=== PATIENT | female | born 1990 | race American Indian/Alaskan Native ===

== ENCOUNTER 2019-01-06 20:33 | Inpatient (IN) | payer OTHER ==
[2019-01-06] MEDS ORDERED: BRETHINE SUB-Q PRN (23:23)
[2019-01-06] MEDS ORDERED: XYLOCAINE 2% INFILTRATI ONE (23:23)
[2019-01-06] MEDS ORDERED: BRETHINE IVP PRN (23:23)
[2019-01-06] MEDS ORDERED: SUBLIMAZE IV PRN (23:23)
[2019-01-06] MEDS ORDERED: STADOL IV PRN (23:23)
[2019-01-06] MEDS ORDERED: MINERAL OIL PO PRN (23:23)
[2019-01-06] MEDS ORDERED: AMBIEN PO PRN (23:27)
[2019-01-06] MEDS ORDERED: PITOCin/NS 20 UNIT/1000ML DRIP 20 UNITS/1,000 ML BAG IV SCH (23:45)
[2019-01-06] MEDS ORDERED: CERVIDIL VG ONE (23:51)
[2019-01-07 00:18] LABS: Hematocrit 32.4 % (30.3-42.9); Hemoglobin 11.2 gm/dl (10.1-14.3); Mean Corpuscular HGB Conc 35 % (30-34); Mean Corpuscular Volume 96 fl (79-97); Platelet Count 315 K/mm3 (140-440); Red Blood Count 3.39 M/mm3 (3.65-5.03); Red Cell Distribution Width 13.6 % (13.2-15.2)
[2019-01-07] MEDS: LACTATED RINGERS 1,000 ML IV SCH ×2 (00:34→19:55)
--- NOTE | 2019-01-07 01:44 | History and Physical Report ---
History of Present Illness Date of examination: 01/07/19 Date of admission: 01/06/19 20:33 Chief complaint: Induction of Labor History of present illness: 28yo G 1 P 0 @ 39 weeks 3 days here for a scheduled induction of labor secondary to morbid obesity, per [facility] recommendation. She reports +FMs but denies UCs, VB or LOF. She is a [employer] patient who initiated care at 32 weeks gestation; late transfer from [facility]. Her care was co-managed with [facility]. 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 Labs: O+, antibody screen neg, pap smear normal, RI, VDRL NR, HBsAg neg, HIV neg, HSV-2 pos, GC/CT/Trich neg, sickle cell screen neg, Drug screen neg, MSAFP neg, Diabetes screen 89, GBS neg. Past History Past Medical History: other (keloid scars) Past Surgical History: other (keloid removal) [employer] History: gonorrhea, herpes Family/Genetic History: diabetes, hypertension, cancer (lung), other (Autism) Social history: single, lives with family, full code. denies: smoking, alcohol abuse, prescription drug abuse, IV drug use - Obstetrical History Expected Date of Delivery: 01/11/19 Actual Gestation: 39 Week(s) 3 Day(s) : 1 Para: 0 Hx # Term Pregnancies: 0 Number of Pregnancies: 0 Spontaneous Abortions: 0 Induced : 0 Number of Living Children: 0 Medications and Allergies Allergies Allergy/AdvReac Type Severity Reaction Status Date / Time No Known Allergies Allergy Verified 01/06/19 23:09 Active Meds: Active Medications Butorphanol Tartrate (Stadol) 2 mg IV Q2H PRN PRN Reason: Pain , Severe (7-10) Ephedrine Sulfate (Ephedrine Sulfate) 10 mg IV Q2M PRN PRN Reason: Hypotension Fentanyl (Sublimaze) 100 mcg IV Q2H PRN PRN Reason: Labor Pain Lactated Ringer's (Lactated Ringers) 1,000 mls @ 125 mls/hr IV DIRECT EDWARD Last Admin: 01/07/19 00:34 Dose: 125 mls/hr Documented by: Oxytocin/Sodium Chloride (Pitocin/Ns 20 Unit/1000ml Drip) 20 units in 1,000 mls @ 125 mls/hr IV DIRECT EDWARD Mineral Oil (Mineral Oil) 30 ml PO QHS PRN PRN Reason: Constipation Terbutaline Sulfate (Brethine) 0.25 mg SUB-Q ONCE PRN PRN Reason: Hyperstimulation/Hypertonicity Terbutaline Sulfate (Brethine) 0.25 mg IVP ONCE PRN PRN Reason: Hyperstimulation/Hypertonicity Zolpidem Tartrate (Ambien) 10 mg PO QHS PRN PRN Reason: Insomnia Review of Systems All systems: negative - Vital Signs Vital signs: Vital Signs Pulse Pulse Ox 95 H 96 01/06/19 20:58 01/06/19 20:58 Temp Pulse Resp BP Pulse Ox 98.8 F 80 18 108/55 96 01/06/19 22:00 01/07/19 01:29 01/06/19 22:00 01/06/19 22:16 01/07/19 01:29 - Obstetrical FHR: auscultation normal, category 1 FHR comments: baseline 130, moderate variability, 15x15 accels, no decels Cervical Dilatation: 0 (per RN) Cervical Effacement Percentage: 20 (per RN) station: -3 (per RN) Uterine Contraction Pattern: Irregular Results Result Diagrams: 01/06/19 21:00 Abnormal lab results 01/06/19 Range/Units 21:00 RBC 3.39 L (3.65-5.03) M/mm3 MCH 33 H (28-32) pg MCHC 35 H (30-34) % All other labs normal. Assessment and Plan - Patient Problems (1) 39 weeks gestation of Current Visit: Yes Status: Acute (2) Encounter for induction of labor Current Visit: Yes Status: Acute Plan to address problem: Admit to L&D with routine labor orders Discussed plan of care with patient Cervidil for cervical ripening ordered Anticipate vaginal delivery (3) Morbid obesity with BMI of 40.0-44.9, adult Current Visit: Yes Status: Chronic (4) Keloid scar Current Visit: Yes Status: Chronic
[2019-01-07] MEDS ORDERED: XYLOCAINE 2% INFILTRATI ONE (09:05)
--- NOTE | 2019-01-07 09:35 | Progress Note ---
Assessment and Plan - Patient Problems (1) Encounter for induction of labor Current Visit: Yes Status: Acute Plan to address problem: Continue routine labor orders Remove cervidil 12 hrs from insertion Pain meds as needed Will reassess after cervidil removed Anticipate (2) Morbid obesity with BMI of 40.0-44.9, adult Current Visit: Yes Status: Chronic (3) Keloid scar Current Visit: Yes Status: Chronic Subjective - Subjective Date of service: 01/07/19 (08) Principal diagnosis: Induction of labor secondary to morbid obesity Interval history: See admission H & P Patient reports: new complaints (Reports some back pain. Wants to know if she can eat after cervidil comes out.), movement normal, contractions, no loss of fluid, no vaginal bleeding Objective - Vital Signs Vital Signs: Vital Signs - 12hr 01/06/19 01/06/19 01/06/19 21:32 21:33 22:00 Temperature 98.8 F Pulse Rate 90 94 H Respiratory 18 Rate Blood Pressure O2 Sat by Pulse 94 95 Oximetry 01/06/19 01/06/19 01/06/19 22:16 22:21 22:26 Temperature Pulse Rate 90 90 84 Respiratory Rate Blood Pressure 108/55 O2 Sat by Pulse 98 96 97 Oximetry 01/06/19 01/06/19 01/06/19 22:31 22:36 22:41 Temperature Pulse Rate 84 87 89 Respiratory Rate Blood Pressure O2 Sat by Pulse 97 97 97 Oximetry 01/06/19 01/06/19 01/06/19 22:46 22:51 22:56 Temperature Pulse Rate 94 H 85 79 Respiratory Rate Blood Pressure O2 Sat by Pulse 96 96 97 Oximetry 01/06/19 01/06/19 01/06/19 23:01 23:06 23:11 Temperature Pulse Rate 84 84 96 H Respiratory Rate Blood Pressure O2 Sat by Pulse 96 97 96 Oximetry 01/06/19 01/06/19 01/06/19 23:16 23:21 23:26 Temperature Pulse Rate 79 76 95 H Respiratory Rate Blood Pressure O2 Sat by Pulse 97 97 97 Oximetry 01/06/19 01/06/19 01/06/19 23:31 23:36 23:41 Temperature Pulse Rate 79 78 80 Respiratory Rate Blood Pressure O2 Sat by Pulse 98 97 96 Oximetry 01/06/19 01/06/19 01/06/19 23:46 23:51 23:56 Temperature Pulse Rate 77 94 H 84 Respiratory Rate Blood Pressure O2 Sat by Pulse 96 97 96 Oximetry 01/06/19 01/07/19 01/07/19 23:58 00:01 00:06 Temperature Pulse Rate 89 80 78 Respiratory Rate Blood Pressure O2 Sat by Pulse 94 96 95 Oximetry 01/07/19 01/07/19 01/07/19 00:07 00:10 00:14 Temperature 98.8 F Pulse Rate 81 94 H Respiratory 18 Rate Blood Pressure O2 Sat by Pulse 94 98 Oximetry 01/07/19 01/07/19 01/07/19 00:19 00:24 00:29 Temperature Pulse Rate 79 79 103 H Respiratory Rate Blood Pressure O2 Sat by Pulse 94 97 96 Oximetry 01/07/19 01/07/19 01/07/19 00:30 00:34 00:36 Temperature Pulse Rate 87 81 84 Respiratory Rate Blood Pressure O2 Sat by Pulse 94 95 94 Oximetry 01/07/19 01/07/19 01/07/19 00:39 00:44 00:49 Temperature Pulse Rate 86 88 82 Respiratory Rate Blood Pressure O2 Sat by Pulse 94 96 95 Oximetry 01/07/19 01/07/19 01/07/19 00:54 00:59 01:04 Temperature Pulse Rate 93 H 85 82 Respiratory Rate Blood Pressure O2 Sat by Pulse 97 96 95 Oximetry 01/07/19 01/07/19 01/07/19 01:07 01:09 01:13 Temperature Pulse Rate 78 91 H 86 Respiratory Rate Blood Pressure O2 Sat by Pulse 93 97 94 Oximetry 01/07/19 01/07/19 01/07/19 01:14 01:19 01:24 Temperature Pulse Rate 84 75 87 Respiratory Rate Blood Pressure O2 Sat by Pulse 97 94 96 Oximetry 01/07/19 01/07/19 01/07/19 01:29 01:33 01:34 Temperature Pulse Rate 80 81 Respiratory Rate Blood Pressure O2 Sat by Pulse 96 94 97 Oximetry 01/07/19 01/07/19 01/07/19 01:39 01:44 01:50 Temperature Pulse Rate 84 82 101 H Respiratory Rate Blood Pressure O2 Sat by Pulse 93 98 93 Oximetry 01/07/19 01/07/19 01/07/19 01:55 02:00 02:05 Temperature Pulse Rate 73 73 79 Respiratory Rate Blood Pressure O2 Sat by Pulse 95 96 95 Oximetry 01/07/19 01/07/19 01/07/19 02:06 02:10 02:11 Temperature Pulse Rate 77 80 78 Respiratory Rate Blood Pressure O2 Sat by Pulse 94 95 94 Oximetry 01/07/19 01/07/19 01/07/19 02:15 02:19 02:20 Temperature Pulse Rate 80 71 78 Respiratory Rate Blood Pressure O2 Sat by Pulse 94 94 96 Oximetry 01/07/19 01/07/19 01/07/19 02:25 02:30 02:35 Temperature Pulse Rate 69 74 78 Respiratory Rate Blood Pressure O2 Sat by Pulse 97 96 93 Oximetry 01/07/19 01/07/19 01/07/19 02:40 02:45 02:46 Temperature Pulse Rate 77 77 75 Respiratory Rate Blood Pressure O2 Sat by Pulse 94 94 93 Oximetry 01/07/19 01/07/19 01/07/19 02:50 02:51 02:55 Temperature Pulse Rate 72 25 L 83 Respiratory Rate Blood Pressure O2 Sat by Pulse 93 93 96 Oximetry 01/07/19 01/07/19 01/07/19 02:56 03:00 03:02 Temperature Pulse Rate 70 87 90 Respiratory Rate Blood Pressure O2 Sat by Pulse 94 93 93 Oximetry 01/07/19 01/07/19 01/07/19 03:05 03:09 03:10 Temperature Pulse Rate 72 66 83 Respiratory Rate Blood Pressure O2 Sat by Pulse 93 94 95 Oximetry 01/07/19 01/07/19 01/07/19 03:14 03:15 03:20 Temperature Pulse Rate 74 70 68 Respiratory Rate Blood Pressure O2 Sat by Pulse 94 94 97 Oximetry 01/07/19 01/07/19 01/07/19 03:21 03:25 03:28 Temperature Pulse Rate 94 H 77 78 Respiratory Rate Blood Pressure O2 Sat by Pulse 93 93 93 Oximetry 01/07/19 01/07/19 01/07/19 03:30 03:34 03:35 Temperature Pulse Rate 75 82 83 Respiratory Rate Blood Pressure O2 Sat by Pulse 96 91 97 Oximetry 01/07/19 01/07/19 01/07/19 03:40 03:45 03:48 Temperature Pulse Rate 81 84 73 Respiratory Rate Blood Pressure O2 Sat by Pulse 91 93 94 Oximetry 01/07/19 01/07/19 01/07/19 03:50 03:55 03:56 Temperature 97.6 F Pulse Rate 82 76 Respiratory 20 Rate Blood Pressure O2 Sat by Pulse 94 94 Oximetry 01/07/19 01/07/19 01/07/19 04:00 04:08 04:13 Temperature Pulse Rate 85 92 H 77 Respiratory Rate Blood Pressure O2 Sat by Pulse 97 99 97 Oximetry 01/07/19 01/07/19 01/07/19 04:18 04:23 04:28 Temperature Pulse Rate 83 73 77 Respiratory Rate Blood Pressure O2 Sat by Pulse 97 96 96 Oximetry 01/07/19 01/07/19 01/07/19 04:33 04:34 04:38 Temperature Pulse Rate 72 74 75 Respiratory Rate Blood Pressure O2 Sat by Pulse 95 93 96 Oximetry 01/07/19 01/07/19 01/07/19 04:43 04:44 04:48 Temperature Pulse Rate 80 76 83 Respiratory Rate Blood Pressure O2 Sat by Pulse 95 94 96 Oximetry 01/07/19 01/07/19 01/07/19 04:51 04:53 04:58 Temperature Pulse Rate 81 78 84 Respiratory Rate Blood Pressure O2 Sat by Pulse 93 95 95 Oximetry 01/07/19 01/07/19 01/07/19 04:59 05:03 05:04 Temperature Pulse Rate 78 81 80 Respiratory Rate Blood Pressure O2 Sat by Pulse 94 95 94 Oximetry 01/07/19 01/07/19 01/07/19 05:08 05:12 05:13 Temperature Pulse Rate 89 84 83 Respiratory Rate Blood Pressure O2 Sat by Pulse 95 93 93 Oximetry 01/07/19 01/07/19 01/07/19 05:18 05:23 05:24 Temperature Pulse Rate 76 68 70 Respiratory Rate Blood Pressure O2 Sat by Pulse 89 96 94 Oximetry 01/07/19 01/07/19 01/07/19 05:28 05:29 05:33 Temperature Pulse Rate 77 78 79 Respiratory Rate Blood Pressure O2 Sat by Pulse 93 94 95 Oximetry 01/07/19 01/07/19 01/07/19 05:38 05:43 05:47 Temperature Pulse Rate 78 75 79 Respiratory Rate Blood Pressure O2 Sat by Pulse 90 94 94 Oximetry 01/07/19 01/07/19 01/07/19 05:48 05:53 05:58 Temperature Pulse Rate 87 80 75 Respiratory Rate Blood Pressure O2 Sat by Pulse 94 92 94 Oximetry 05/07/19 05/07/19 05/07/19 05:59 06:03 06:05 Temperature Pulse Rate 75 75 75 Respiratory Rate Blood Pressure O2 Sat by Pulse 92 95 93 Oximetry 01/07/19 01/07/19 01/07/19 06:08 06:11 06:13 Temperature Pulse Rate 67 72 71 Respiratory Rate Blood Pressure O2 Sat by Pulse 94 93 95 Oximetry 01/07/19 01/07/19 01/07/19 06:16 06:18 06:23 Temperature Pulse Rate 72 102 H 86 Respiratory Rate Blood Pressure O2 Sat by Pulse 93 99 90 Oximetry 01/07/19 01/07/19 01/07/19 06:28 06:29 06:30 Temperature 97.8 F Pulse Rate 72 69 Respiratory 20 Rate Blood Pressure O2 Sat by Pulse 95 94 Oximetry 01/07/19 01/07/19 01/07/19 06:33 06:35 06:38 Temperature Pulse Rate 70 81 80 Respiratory Rate Blood Pressure O2 Sat by Pulse 96 89 94 Oximetry 01/07/19 01/07/19 01/07/19 06:40 06:43 06:46 Temperature Pulse Rate 74 73 74 Respiratory Rate Blood Pressure O2 Sat by Pulse 93 91 92 Oximetry 01/07/19 01/07/19 01/07/19 06:48 06:51 06:53 Temperature Pulse Rate 76 74 77 Respiratory Rate Blood Pressure O2 Sat by Pulse 95 94 96 Oximetry 01/07/19 01/07/19 01/07/19 06:56 06:58 07:02 Temperature Pulse Rate 70 63 66 Respiratory Rate Blood Pressure O2 Sat by Pulse 93 96 93 Oximetry 01/07/19 01/07/19 01/07/19 07:03 07:07 07:08 Temperature Pulse Rate 65 72 72 Respiratory Rate Blood Pressure O2 Sat by Pulse 95 94 96 Oximetry 01/07/19 01/07/19 01/07/19 07:13 07:14 07:18 Temperature Pulse Rate 78 76 70 Respiratory Rate Blood Pressure O2 Sat by Pulse 94 93 95 Oximetry 01/07/19 01/07/19 01/07/19 07:19 07:23 07:25 Temperature Pulse Rate 95 H 75 75 Respiratory Rate Blood Pressure 99/47 105/57 O2 Sat by Pulse 94 98 94 Oximetry 01/07/19 01/07/19 01/07/19 07:28 07:33 07:38 Temperature Pulse Rate 86 76 73 Respiratory Rate Blood Pressure O2 Sat by Pulse 97 97 95 Oximetry 01/07/19 01/07/19 01/07/19 07:43 07:48 07:53 Temperature Pulse Rate 80 76 76 Respiratory Rate Blood Pressure O2 Sat by Pulse 94 96 97 Oximetry 01/07/19 01/07/19 01/07/19 08:03 08:08 08:12 Temperature Pulse Rate 65 95 H 87 Respiratory Rate Blood Pressure O2 Sat by Pulse 77 L 95 93 Oximetry 01/07/19 01/07/19 01/07/19 08:13 08:18 08:23 Temperature Pulse Rate 78 72 94 H Respiratory Rate Blood Pressure O2 Sat by Pulse 95 95 96 Oximetry 01/07/19 01/07/19 01/07/19 08:24 08:28 08:29 Temperature Pulse Rate 69 73 76 Respiratory Rate Blood Pressure 114/54 O2 Sat by Pulse 93 93 94 Oximetry 01/07/19 01/07/19 01/07/19 08:33 08:35 08:38 Temperature Pulse Rate 72 81 86 Respiratory Rate Blood Pressure O2 Sat by Pulse 94 94 97 Oximetry 01/07/19 01/07/19 01/07/19 08:41 08:43 08:47 Temperature Pulse Rate 77 70 75 Respiratory Rate Blood Pressure O2 Sat by Pulse 94 95 93 Oximetry 01/07/19 01/07/19 01/07/19 08:48 08:53 08:56 Temperature Pulse Rate 68 80 91 H Respiratory Rate Blood Pressure O2 Sat by Pulse 96 97 92 Oximetry 01/07/19 01/07/19 01/07/19 08:58 09:02 09:03 Temperature Pulse Rate 90 86 78 Respiratory Rate Blood Pressure O2 Sat by Pulse 96 90 93 Oximetry 01/07/19 01/07/19 01/07/19 09:08 09:12 09:13 Temperature Pulse Rate 92 H 81 87 Respiratory Rate Blood Pressure 109/56 O2 Sat by Pulse 97 97 Oximetry 01/07/19 01/07/19 01/07/19 09:18 09:23 09:24 Temperature Pulse Rate 76 78 77 Respiratory Rate Blood Pressure 115/59 O2 Sat by Pulse 97 96 Oximetry 01/07/19 09:28 Temperature Pulse Rate 84 Respiratory Rate Blood Pressure O2 Sat by Pulse 98 Oximetry - Exam Breasts: deferred Cardiovascular: Regular rate Lungs: Normal air movement Abdomen: Present: other (gravid) Uterus: Present: other (S=D) FHR: category 1 Uterine Contraction Monitor Mode: External Uterine Contraction Pattern: Irregular Uterine Tone Measurement Phase: Resting Uterine Contraction Intensity: Mild Extremities: normal Deep Tendon Reflex Grade: Normal +2 - Labs Labs: Abnormal Labs 01/06/19 21:00 RBC 3.39 L MCH 33 H MCHC 35 H Laboratory Results - last 24 hr 01/06/19 01/06/19 21:00 21:00 WBC 9.0 RBC 3.39 L Hgb 11.2 Hct 32.4 MCV 96 MCH 33 H MCHC 35 H RDW 13.6 Plt Count 315 Blood Type O POSITIVE Antibody Screen Negative
--- NOTE | 2019-01-07 15:32 | Progress Note ---
Assessment and Plan - Patient Problems (1) Encounter for induction of labor Current Visit: Yes Status: Acute Plan to address problem: Continue routine labor orders Start Pitocin titration as tolerated Pain meds as needed Epidural as desired after good ctx pattern is maintained Anticipate (2) Morbid obesity with BMI of 40.0-44.9, adult Current Visit: Yes Status: Chronic (3) Keloid scar Current Visit: Yes Status: Chronic Subjective - Subjective Date of service: 01/07/19 (1500) Principal diagnosis: Induction of labor secondary to morbid obesity Interval history: See admission H & P Patient reports: new complaints (Reports some back pain. Wants to know if she can eat after cervidil comes out.), movement normal, contractions, no loss of fluid, no vaginal bleeding Objective - Vital Signs Vital Signs: Vital Signs - 12hr 01/07/19 01/07/19 01/07/19 03:25 03:28 03:30 Temperature Pulse Rate 77 78 75 Respiratory Rate Blood Pressure O2 Sat by Pulse 93 93 96 Oximetry 01/07/19 01/07/19 01/07/19 03:34 03:35 03:40 Temperature Pulse Rate 82 83 81 Respiratory Rate Blood Pressure O2 Sat by Pulse 91 97 91 Oximetry 01/07/19 01/07/19 01/07/19 03:45 03:48 03:50 Temperature Pulse Rate 84 73 82 Respiratory Rate Blood Pressure O2 Sat by Pulse 93 94 94 Oximetry 01/07/19 01/07/19 01/07/19 03:55 03:56 04:00 Temperature 97.6 F Pulse Rate 76 85 Respiratory 20 Rate Blood Pressure O2 Sat by Pulse 94 97 Oximetry 01/07/19 01/07/19 01/07/19 04:08 04:13 04:18 Temperature Pulse Rate 92 H 77 83 Respiratory Rate Blood Pressure O2 Sat by Pulse 99 97 97 Oximetry 01/07/19 01/07/19 01/07/19 04:23 04:28 04:33 Temperature Pulse Rate 73 77 72 Respiratory Rate Blood Pressure O2 Sat by Pulse 96 96 95 Oximetry 01/07/19 01/07/19 01/07/19 04:34 04:38 04:43 Temperature Pulse Rate 74 75 80 Respiratory Rate Blood Pressure O2 Sat by Pulse 93 96 95 Oximetry 01/07/19 01/07/19 01/07/19 04:44 04:48 04:51 Temperature Pulse Rate 76 83 81 Respiratory Rate Blood Pressure O2 Sat by Pulse 94 96 93 Oximetry 01/07/19 01/07/19 01/07/19 04:53 04:58 04:59 Temperature Pulse Rate 78 84 78 Respiratory Rate Blood Pressure O2 Sat by Pulse 95 95 94 Oximetry 01/07/19 01/07/19 01/07/19 05:03 05:04 05:08 Temperature Pulse Rate 81 80 89 Respiratory Rate Blood Pressure O2 Sat by Pulse 95 94 95 Oximetry 01/07/19 01/07/19 01/07/19 05:12 05:13 05:18 Temperature Pulse Rate 84 83 76 Respiratory Rate Blood Pressure O2 Sat by Pulse 93 93 89 Oximetry 01/07/19 01/07/19 01/07/19 05:23 05:24 05:28 Temperature Pulse Rate 68 70 77 Respiratory Rate Blood Pressure O2 Sat by Pulse 96 94 93 Oximetry 01/07/19 01/07/19 01/07/19 05:29 05:33 05:38 Temperature Pulse Rate 78 79 78 Respiratory Rate Blood Pressure O2 Sat by Pulse 94 95 90 Oximetry 01/07/19 01/07/19 01/07/19 05:43 05:47 05:48 Temperature Pulse Rate 75 79 87 Respiratory Rate Blood Pressure O2 Sat by Pulse 94 94 94 Oximetry 01/07/19 01/07/19 01/07/19 05:53 05:58 05:59 Temperature Pulse Rate 80 75 75 Respiratory Rate Blood Pressure O2 Sat by Pulse 92 94 92 Oximetry 01/07/19 01/07/19 01/07/19 06:03 06:05 06:08 Temperature Pulse Rate 75 75 67 Respiratory Rate Blood Pressure O2 Sat by Pulse 95 93 94 Oximetry 01/07/19 01/07/19 01/07/19 06:11 06:13 06:16 Temperature Pulse Rate 72 71 72 Respiratory Rate Blood Pressure O2 Sat by Pulse 93 95 93 Oximetry 01/07/19 01/07/19 01/07/19 06:18 06:23 06:28 Temperature Pulse Rate 102 H 86 72 Respiratory Rate Blood Pressure O2 Sat by Pulse 99 90 95 Oximetry 01/07/19 01/07/19 01/07/19 06:29 06:30 06:33 Temperature 97.8 F Pulse Rate 69 70 Respiratory 20 Rate Blood Pressure O2 Sat by Pulse 94 96 Oximetry 01/07/19 01/07/19 01/07/19 06:35 06:38 06:40 Temperature Pulse Rate 81 80 74 Respiratory Rate Blood Pressure O2 Sat by Pulse 89 94 93 Oximetry 01/07/19 01/07/19 01/07/19 06:43 06:46 06:48 Temperature Pulse Rate 73 74 76 Respiratory Rate Blood Pressure O2 Sat by Pulse 91 92 95 Oximetry 01/07/19 01/07/19 01/07/19 06:51 06:53 06:56 Temperature Pulse Rate 74 77 70 Respiratory Rate Blood Pressure O2 Sat by Pulse 94 96 93 Oximetry 01/07/19 01/07/19 01/07/19 06:58 07:02 07:03 Temperature Pulse Rate 63 66 65 Respiratory Rate Blood Pressure O2 Sat by Pulse 96 93 95 Oximetry 01/07/19 01/07/19 01/07/19 07:07 07:08 07:13 Temperature Pulse Rate 72 72 78 Respiratory Rate Blood Pressure O2 Sat by Pulse 94 96 94 Oximetry 01/07/19 01/07/19 01/07/19 07:14 07:18 07:19 Temperature Pulse Rate 76 70 95 H Respiratory Rate Blood Pressure O2 Sat by Pulse 93 95 94 Oximetry 01/07/19 01/07/19 01/07/19 07:23 07:25 07:28 Temperature Pulse Rate 75 75 86 Respiratory Rate Blood Pressure 99/47 105/57 O2 Sat by Pulse 98 94 97 Oximetry 01/07/19 01/07/19 01/07/19 07:33 07:38 07:43 Temperature Pulse Rate 76 73 80 Respiratory Rate Blood Pressure O2 Sat by Pulse 97 95 94 Oximetry 01/07/19 01/07/19 01/07/19 07:48 07:53 08:03 Temperature Pulse Rate 76 76 65 Respiratory Rate Blood Pressure O2 Sat by Pulse 96 97 77 L Oximetry 01/07/19 01/07/19 01/07/19 08:08 08:12 08:13 Temperature Pulse Rate 95 H 87 78 Respiratory Rate Blood Pressure O2 Sat by Pulse 95 93 95 Oximetry 01/07/19 01/07/19 01/07/19 08:18 08:23 08:24 Temperature Pulse Rate 72 94 H 69 Respiratory Rate Blood Pressure 114/54 O2 Sat by Pulse 95 96 93 Oximetry 01/07/19 01/07/19 01/07/19 08:28 08:29 08:33 Temperature Pulse Rate 73 76 72 Respiratory Rate Blood Pressure O2 Sat by Pulse 93 94 94 Oximetry 01/07/19 01/07/19 01/07/19 08:35 08:38 08:41 Temperature Pulse Rate 81 86 77 Respiratory Rate Blood Pressure O2 Sat by Pulse 94 97 94 Oximetry 01/07/19 01/07/19 01/07/19 08:43 08:47 08:48 Temperature Pulse Rate 70 75 68 Respiratory Rate Blood Pressure O2 Sat by Pulse 95 93 96 Oximetry 01/07/19 01/07/19 01/07/19 08:53 08:56 08:58 Temperature Pulse Rate 80 91 H 90 Respiratory Rate Blood Pressure O2 Sat by Pulse 97 92 96 Oximetry 01/07/19 01/07/19 01/07/19 09:02 09:03 09:05 Temperature 98.1 F Pulse Rate 86 78 Respiratory 18 Rate Blood Pressure O2 Sat by Pulse 90 93 Oximetry 01/07/19 01/07/19 01/07/19 09:08 09:12 09:13 Temperature Pulse Rate 92 H 81 87 Respiratory Rate Blood Pressure 109/56 O2 Sat by Pulse 97 97 Oximetry 01/07/19 01/07/19 01/07/19 09:18 09:23 09:24 Temperature Pulse Rate 76 78 77 Respiratory Rate Blood Pressure 115/59 O2 Sat by Pulse 97 96 Oximetry 01/07/19 01/07/19 01/07/19 09:28 09:33 09:38 Temperature Pulse Rate 84 79 93 H Respiratory Rate Blood Pressure O2 Sat by Pulse 98 95 96 Oximetry 01/07/19 01/07/19 01/07/19 09:43 09:54 09:59 Temperature Pulse Rate 79 79 78 Respiratory Rate Blood Pressure O2 Sat by Pulse 94 97 97 Oximetry 01/07/19 01/07/19 01/07/19 10:04 10:09 10:14 Temperature Pulse Rate 92 H 89 73 Respiratory Rate Blood Pressure O2 Sat by Pulse 95 97 96 Oximetry 01/07/19 01/07/19 01/07/19 10:19 10:23 10:24 Temperature Pulse Rate 77 76 94 H Respiratory Rate Blood Pressure 109/53 O2 Sat by Pulse 97 96 Oximetry 01/07/19 01/07/19 01/07/19 10:25 10:29 10:34 Temperature Pulse Rate 89 92 H 83 Respiratory Rate Blood Pressure O2 Sat by Pulse 93 96 97 Oximetry 01/07/19 01/07/19 01/07/19 10:39 10:44 10:47 Temperature Pulse Rate 84 91 H 99 H Respiratory Rate Blood Pressure O2 Sat by Pulse 96 96 94 Oximetry 01/07/19 01/07/19 01/07/19 10:49 10:54 10:59 Temperature Pulse Rate 87 88 86 Respiratory Rate Blood Pressure O2 Sat by Pulse 98 94 95 Oximetry 01/07/19 01/07/19 01/07/19 11:04 11:06 11:09 Temperature Pulse Rate 74 85 97 H Respiratory Rate Blood Pressure O2 Sat by Pulse 96 93 96 Oximetry 01/07/19 01/07/19 01/07/19 11:12 11:14 11:19 Temperature Pulse Rate 82 79 78 Respiratory Rate Blood Pressure O2 Sat by Pulse 94 97 95 Oximetry 01/07/19 01/07/19 01/07/19 11:23 11:24 11:29 Temperature Pulse Rate 76 86 85 Respiratory Rate Blood Pressure 100/54 O2 Sat by Pulse 93 94 Oximetry 01/07/19 01/07/19 01/07/19 11:34 11:38 11:39 Temperature Pulse Rate 72 72 92 H Respiratory Rate Blood Pressure O2 Sat by Pulse 96 94 96 Oximetry 01/07/19 01/07/19 01/07/19 11:44 12:03 12:08 Temperature Pulse Rate 85 89 82 Respiratory Rate Blood Pressure O2 Sat by Pulse 95 100 97 Oximetry 01/07/19 01/07/19 01/07/19 12:13 12:14 12:18 Temperature 97.2 F L Pulse Rate 87 88 77 Respiratory 18 Rate Blood Pressure 107/60 O2 Sat by Pulse 97 97 Oximetry 01/07/19 01/07/19 01/07/19 12:23 12:28 12:33 Temperature Pulse Rate 78 81 81 Respiratory Rate Blood Pressure 116/57 O2 Sat by Pulse 97 97 96 Oximetry 01/07/19 01/07/19 12:38 12:43 Temperature Pulse Rate 76 83 Respiratory Rate Blood Pressure O2 Sat by Pulse 97 97 Oximetry - Exam Breasts: deferred Cardiovascular: Regular rate Lungs: Normal air movement Uterus: Present: other (S=D) FHR: category 1 Uterine Contraction Monitor Mode: External Cervical Dilatation: 2 Cervical Effacement Percentage: 70 station: -3 Uterine Contraction Frequency (min): 2-5 Uterine Contraction Pattern: Irregular Uterine Tone Measurement Phase: Resting Uterine Contraction Intensity: Mild Extremities: normal Deep Tendon Reflex Grade: Normal +2 - Labs Labs: Abnormal Labs 01/06/19 21:00 RBC 3.39 L MCH 33 H MCHC 35 H Laboratory Results - last 24 hr 01/06/19 01/06/19 01/06/19 21:00 21:00 21:00 WBC 9.0 RBC 3.39 L Hgb 11.2 Hct 32.4 MCV 96 MCH 33 H MCHC 35 H RDW 13.6 Plt Count 315 RPR Nonreactive Blood Type O POSITIVE Antibody Screen Negative
[2019-01-07] MEDS: PITOCin/NS 30 UNIT/500ML 30 UNITS/500 ML BAG IV SCH (15:45)
[2019-01-07] MEDS: VALTREX PO SCH (16:16)
[2019-01-08] MEDS: LACTATED RINGERS 1,000 ML IV SCH ×4 (02:17→19:56)
--- NOTE | 2019-01-08 08:18 | Event Note ---
Date: 01/07/19 (2229) A: 28 yo @ 39.4 wks gestation IOL secondary to MO O+ blood type GBS negative HSVII Keloid scar P: Continue routine labor orders Titrate Pitocin as tolerated Pain meds as desired Anticipate S: Pt is resting quietly, no complaints offered, declines need for pain medication at this time. O: Category 1 FHTs Vertex Cervix unchanged from previous exam Pitocin currently at 14 mu/min.
--- NOTE | 2019-01-08 08:24 | Progress Note ---
Assessment and Plan - Patient Problems (1) Encounter for induction of labor Current Visit: Yes Status: Acute Plan to address problem: Continue routine labor orders Restart Pitocin titration @ 4 mu/min and increase as tolerated Pain meds as needed Epidural as desired Anticipate (2) Morbid obesity with BMI of 40.0-44.9, adult Current Visit: Yes Status: Chronic (3) Keloid scar Current Visit: Yes Status: Chronic Subjective - Subjective Date of service: 01/08/19 (714) Principal diagnosis: Induction of labor secondary to morbid obesity Interval history: See admission H & P and L & D progress notes Patient reports: new complaints (Feels fine, irregular ctx as Pitocin has been off since coming from bathroom around 0530. Declines need for pain medication at this time.), movement normal, contractions, no loss of fluid, no vaginal bleeding Objective - Vital Signs Vital Signs: Vital Signs - 12hr 01/07/19 01/07/19 01/07/19 20:21 20:26 20:28 Temperature Pulse Rate 94 H 93 H 58 L Blood Pressure O2 Sat by Pulse 96 97 83 L Oximetry 01/07/19 01/07/19 01/07/19 20:31 20:36 20:41 Temperature Pulse Rate 113 H 96 H 98 H Blood Pressure O2 Sat by Pulse 97 97 97 Oximetry 01/07/19 01/07/19 01/07/19 20:45 20:46 20:51 Temperature Pulse Rate 84 94 H 95 H Blood Pressure 103/55 O2 Sat by Pulse 97 97 Oximetry 01/07/19 01/07/19 01/07/19 20:56 21:01 21:06 Temperature Pulse Rate 93 H 82 83 Blood Pressure O2 Sat by Pulse 98 98 97 Oximetry 01/07/19 01/07/19 01/07/19 21:11 21:16 21:20 Temperature Pulse Rate 87 87 82 Blood Pressure 123/63 O2 Sat by Pulse 97 97 90 Oximetry 01/07/19 01/07/19 01/07/19 21:21 21:26 21:31 Temperature Pulse Rate 92 H 84 89 Blood Pressure O2 Sat by Pulse 97 97 97 Oximetry 01/07/19 01/07/19 01/07/19 21:36 21:41 21:46 Temperature Pulse Rate 83 99 H 85 Blood Pressure O2 Sat by Pulse 98 98 98 Oximetry 01/07/19 01/07/19 01/07/19 21:48 21:51 21:56 Temperature Pulse Rate 81 84 88 Blood Pressure 96/48 O2 Sat by Pulse 97 98 Oximetry 01/07/19 01/07/19 01/07/19 22:01 22:06 22:11 Temperature Pulse Rate 77 84 81 Blood Pressure O2 Sat by Pulse 98 97 98 Oximetry 01/07/19 01/07/19 01/07/19 22:15 22:16 22:18 Temperature Pulse Rate 80 78 80 Blood Pressure 101/52 O2 Sat by Pulse 97 87 Oximetry 01/07/19 01/07/19 01/07/19 22:23 22:28 22:34 Temperature Pulse Rate 93 H 99 H 84 Blood Pressure O2 Sat by Pulse 100 99 98 Oximetry 01/07/19 01/07/19 01/07/19 22:39 22:44 22:46 Temperature Pulse Rate 89 84 82 Blood Pressure 100/51 O2 Sat by Pulse 97 97 Oximetry 01/07/19 01/07/19 01/07/19 22:49 22:54 22:59 Temperature Pulse Rate 76 75 79 Blood Pressure O2 Sat by Pulse 97 97 96 Oximetry 01/07/19 01/07/19 01/07/19 23:04 23:09 23:14 Temperature Pulse Rate 72 87 80 Blood Pressure O2 Sat by Pulse 98 96 97 Oximetry 01/07/19 01/07/19 01/07/19 23:16 23:18 23:19 Temperature Pulse Rate 78 88 84 Blood Pressure 135/63 O2 Sat by Pulse 92 98 Oximetry 01/07/19 01/07/19 01/07/19 23:24 23:26 23:32 Temperature Pulse Rate 74 81 85 Blood Pressure O2 Sat by Pulse 95 94 100 Oximetry 01/07/19 01/07/19 01/07/19 23:33 23:37 23:42 Temperature Pulse Rate 80 85 Blood Pressure O2 Sat by Pulse 80 L 97 98 Oximetry 01/07/19 01/07/19 01/07/19 23:46 23:47 23:52 Temperature Pulse Rate 85 81 84 Blood Pressure 106/63 O2 Sat by Pulse 99 97 Oximetry 01/08/19 01/08/19 01/08/19 00:15 00:39 00:44 Temperature Pulse Rate 81 82 87 Blood Pressure 110/54 O2 Sat by Pulse 98 97 Oximetry 01/08/19 01/08/19 01/08/19 00:45 00:49 00:54 Temperature Pulse Rate 78 77 78 Blood Pressure 103/53 O2 Sat by Pulse 94 97 97 Oximetry 01/08/19 01/08/19 01/08/19 00:59 01:04 01:09 Temperature Pulse Rate 83 76 74 Blood Pressure O2 Sat by Pulse 98 96 96 Oximetry 01/08/19 01/08/19 01/08/19 01:14 01:15 01:17 Temperature Pulse Rate 69 73 71 Blood Pressure 103/53 O2 Sat by Pulse 96 94 Oximetry 01/08/19 01/08/19 01/08/19 01:19 01:24 01:30 Temperature Pulse Rate 74 71 85 Blood Pressure O2 Sat by Pulse 96 97 99 Oximetry 01/08/19 01/08/19 01/08/19 01:35 01:40 01:46 Temperature Pulse Rate 71 72 84 Blood Pressure O2 Sat by Pulse 97 98 98 Oximetry 01/08/19 01/08/19 01/08/19 01:51 02:13 02:18 Temperature Pulse Rate 72 72 79 Blood Pressure O2 Sat by Pulse 95 97 97 Oximetry 01/08/19 01/08/19 01/08/19 02:23 02:25 02:28 Temperature Pulse Rate 71 88 77 Blood Pressure O2 Sat by Pulse 96 90 98 Oximetry 01/08/19 01/08/19 01/08/19 02:31 02:33 02:38 Temperature Pulse Rate 79 79 89 Blood Pressure O2 Sat by Pulse 93 93 99 Oximetry 01/08/19 01/08/19 01/08/19 02:40 02:43 02:47 Temperature Pulse Rate 90 80 80 Blood Pressure O2 Sat by Pulse 93 95 94 Oximetry 01/08/19 01/08/19 01/08/19 02:48 02:52 02:53 Temperature Pulse Rate 84 75 75 Blood Pressure O2 Sat by Pulse 93 94 93 Oximetry 01/08/19 01/08/19 01/08/19 02:58 02:59 03:03 Temperature Pulse Rate 78 77 83 Blood Pressure O2 Sat by Pulse 94 93 93 Oximetry 01/08/19 01/08/19 01/08/19 03:08 03:13 03:18 Temperature Pulse Rate 78 79 74 Blood Pressure O2 Sat by Pulse 92 91 89 Oximetry 01/08/19 01/08/19 01/08/19 03:23 03:28 03:33 Temperature Pulse Rate 77 80 76 Blood Pressure O2 Sat by Pulse 89 89 87 Oximetry 01/08/19 01/08/19 01/08/19 03:38 07:06 07:07 Temperature 98.4 F Pulse Rate 75 77 Blood Pressure 108/55 O2 Sat by Pulse 89 Oximetry - Exam Breasts: deferred Cardiovascular: Regular rate Lungs: Normal air movement Abdomen: Present: other (gravid) Uterus: Present: other (S=D) FHR: category 1 Uterine Contraction Monitor Mode: External Cervical Dilatation: 3 (Vertex) Cervical Effacement Percentage: 70 station: -2-3 Uterine Contraction Frequency (min): 3-5 Uterine Contraction Pattern: Irregular Uterine Tone Measurement Phase: Resting Uterine Contraction Intensity: Moderate Extremities: normal Deep Tendon Reflex Grade: Normal +2 - Labs Labs: Abnormal Labs 01/06/19 21:00 RBC 3.39 L MCH 33 H MCHC 35 H Laboratory Results - last 24 hr 01/06/19 21:00 RPR Nonreactive
--- NOTE | 2019-01-08 10:19 | Progress Note ---
Assessment and Plan A: IUP @ 39 5/7 Weeks Category I Tracing Morbid obesity Early Labor GBS Negative P: AROM Continue Pitocin Augmentation Multiple Maternal Position Changes Subjective - Subjective Date of service: 01/08/19 Principal diagnosis: Induction of labor secondary to morbid obesity Patient reports: movement normal, contractions (mild), no loss of fluid, no vaginal bleeding Objective - Vital Signs Vital Signs: Vital Signs - 12hr 01/07/19 01/07/19 01/07/19 22:18 22:23 22:28 Temperature Pulse Rate 80 93 H 99 H Blood Pressure O2 Sat by Pulse 87 100 99 Oximetry 01/07/19 01/07/19 01/07/19 22:34 22:39 22:44 Temperature Pulse Rate 84 89 84 Blood Pressure O2 Sat by Pulse 98 97 97 Oximetry 01/07/19 01/07/19 01/07/19 22:46 22:49 22:54 Temperature Pulse Rate 82 76 75 Blood Pressure 100/51 O2 Sat by Pulse 97 97 Oximetry 01/07/19 01/07/19 01/07/19 22:59 23:04 23:09 Temperature Pulse Rate 79 72 87 Blood Pressure O2 Sat by Pulse 96 98 96 Oximetry 01/07/19 01/07/19 01/07/19 23:14 23:16 23:18 Temperature Pulse Rate 80 78 88 Blood Pressure 135/63 O2 Sat by Pulse 97 92 Oximetry 01/07/19 01/07/19 01/07/19 23:19 23:24 23:26 Temperature Pulse Rate 84 74 81 Blood Pressure O2 Sat by Pulse 98 95 94 Oximetry 01/07/19 01/07/19 01/07/19 23:32 23:33 23:37 Temperature Pulse Rate 85 80 Blood Pressure O2 Sat by Pulse 100 80 L 97 Oximetry 01/07/19 01/07/19 01/07/19 23:42 23:46 23:47 Temperature Pulse Rate 85 85 81 Blood Pressure 106/63 O2 Sat by Pulse 98 99 Oximetry 01/07/19 01/08/19 01/08/19 23:52 00:15 00:39 Temperature Pulse Rate 84 81 82 Blood Pressure 110/54 O2 Sat by Pulse 97 98 Oximetry 01/08/19 01/08/19 01/08/19 00:44 00:45 00:49 Temperature Pulse Rate 87 78 77 Blood Pressure 103/53 O2 Sat by Pulse 97 94 97 Oximetry 01/08/19 01/08/19 01/08/19 00:54 00:59 01:04 Temperature Pulse Rate 78 83 76 Blood Pressure O2 Sat by Pulse 97 98 96 Oximetry 01/08/19 01/08/19 01/08/19 01:09 01:14 01:15 Temperature Pulse Rate 74 69 73 Blood Pressure 103/53 O2 Sat by Pulse 96 96 Oximetry 01/08/19 01/08/19 01/08/19 01:17 01:19 01:24 Temperature Pulse Rate 71 74 71 Blood Pressure O2 Sat by Pulse 94 96 97 Oximetry 01/08/19 01/08/19 01/08/19 01:30 01:35 01:40 Temperature Pulse Rate 85 71 72 Blood Pressure O2 Sat by Pulse 99 97 98 Oximetry 01/08/19 01/08/19 01/08/19 01:46 01:51 02:13 Temperature Pulse Rate 84 72 72 Blood Pressure O2 Sat by Pulse 98 95 97 Oximetry 01/08/19 01/08/19 01/08/19 02:18 02:23 02:25 Temperature Pulse Rate 79 71 88 Blood Pressure O2 Sat by Pulse 97 96 90 Oximetry 01/08/19 01/08/19 01/08/19 02:28 02:31 02:33 Temperature Pulse Rate 77 79 79 Blood Pressure O2 Sat by Pulse 98 93 93 Oximetry 01/08/19 01/08/19 01/08/19 02:38 02:40 02:43 Temperature Pulse Rate 89 90 80 Blood Pressure O2 Sat by Pulse 99 93 95 Oximetry 01/08/19 01/08/19 01/08/19 02:47 02:48 02:52 Temperature Pulse Rate 80 84 75 Blood Pressure O2 Sat by Pulse 94 93 94 Oximetry 01/08/19 01/08/19 01/08/19 02:53 02:58 02:59 Temperature Pulse Rate 75 78 77 Blood Pressure O2 Sat by Pulse 93 94 93 Oximetry 01/08/19 01/08/19 01/08/19 03:03 03:08 03:13 Temperature Pulse Rate 83 78 79 Blood Pressure O2 Sat by Pulse 93 92 91 Oximetry 01/08/19 01/08/19 01/08/19 03:18 03:23 03:28 Temperature Pulse Rate 74 77 80 Blood Pressure O2 Sat by Pulse 89 89 89 Oximetry 01/08/19 01/08/19 01/08/19 03:33 03:38 07:06 Temperature Pulse Rate 76 75 77 Blood Pressure 108/55 O2 Sat by Pulse 87 89 Oximetry 01/08/19 07:07 Temperature 98.4 F Pulse Rate Blood Pressure O2 Sat by Pulse Oximetry - Exam Breasts: normal Cardiovascular: Regular rate Lungs: Clear to auscultation, Normal air movement Abdomen: Present: normal appearance, soft, normal bowel sounds FHR: category 1 Uterine Contraction Monitor Mode: External Cervical Dilatation: 3 (Large amount of clear fluid upon AROM at 1010) Cervical Effacement Percentage: 70 station: -2 Uterine Contraction Pattern: Irregular Uterine Tone Measurement Phase: Resting Uterine Contraction Intensity: Mild Extremities: normal - Labs Labs: Abnormal Labs 01/06/19 21:00 RBC 3.39 L MCH 33 H MCHC 35 H Laboratory Results - last 24 hr 01/06/19 21:00 RPR Nonreactive
[2019-01-08] MEDS: VALTREX PO SCH (10:22)
[2019-01-08] MEDS ORDERED: fentaNYL-BUPIV 2 MCG/ML-0.125% 200 MCG/100 ML BAG EPIDURAL ONE (16:43)
[2019-01-08] MEDS ORDERED: NARCAN 2 MG/2 ML IV PRN (18:11)
--- NOTE | 2019-01-08 18:14 | Anesthesia Consultation ---
Anesthesia Consult and Med Hx Date of service: 01/08/19 - Airway Anesthetic Teeth Evaluation: Good ROM Head & Neck: Adequate Mental/Hyoid Distance: Adequate Mallampati Class: Class III Intubation Access Assessment: Probably Good - Pulmonary Exam CTA: Yes - Cardiac Exam Cardiac Exam: RRR - Pre-Operative Health Status ASA Pre-Surgery Classification: ASA3 Proposed Anesthetic Plan: Epidural - Pulmonary Hx Smoking: No Hx Asthma: No Hx Respiratory Symptoms: No SOB: No COPD: No Home Oxygen Therapy: No Hx Pneumonia: No Hx Sleep Apnea: No - Cardiovascular System Hx Hypertension: No Hx Coronary Artery Disease: No Hx Heart Attack/AMI: No Hx Angina: No Hx Percutaneous Transluminal Coronary Angioplasty (PTCA): No Hx Cardia Arrhythmia: No Hx Pacemaker: No Hx Internal Defibrillator: No Hx Valvular Heart Disease: No Hx Heart Murmur: No Hx Peripheral Vascular Disease: No - Central Nervous System Hx Neuromuscular Disorder: No Hx Seizures: No CVA: No Hx Back Pain: Yes Hx Psychiatric Problems: No - Gastrointestinal Hx Ulcer: No Hx Gastroesophageal Reflux Disease: Yes - Endocrine Hx Renal Disease: No Hx End Stage Renal Disease: No Hx Cirrhosis: No Hx Liver Disease: No Hx Insulin Dependent Diabetes: No Hx Non-Insulin Dependent Diabetes: No Hx Thyroid Disease: No Hx Hypothyroidism: No Hx Hyperthyroidism: No - Hematic Hx Anemia: No Hx Sickle Cell Disease: No - Other Systems Hx Alcohol Use: No Hx Substance Use: No Hx Cancer: No Hx Obesity: Yes
--- NOTE | 2019-01-08 18:15 | Anesthesia Day of Surgery ---
Anesthesia Day of Surgery - Day of Surgery Patient Examined: Yes Patient H&P Reviewed: Yes Patient is NPO: Yes Beta Blockers: No Cardiac Clearance: No Pulmonary Clearance: No Benjie's Test: N/A
--- NOTE | 2019-01-08 18:16 | Post Anesthesia Evaluation ---
- Post Anesthesia Evaluation Patient Participated: Yes Airway Patent: Yes Stable Respiratory Function: Yes Nausea/Vomiting: No Temp > 96.8F: Yes Pain Manageable: Yes Adequeate Hydration: Yes Anesthesia Complications: No Block Receding Appropriately: Yes Patient on Ventilator: No
--- NOTE | 2019-01-08 18:19 | Progress Note ---
Assessment and Plan A: IUP @ 39 5/7 Weeks Category I Tracing Morbid obesity Protracted Labor GBS Negative P: Continue Pitocin Augmentation Multiple Maternal Position Changes IUPC Placed Notify Dr. Traore of Protracted Labor Subjective - Subjective Date of service: 01/08/19 Principal diagnosis: Induction of labor secondary to morbid obesity Patient reports: other (Resting well under epidural anesthesia), no loss of fluid, no vaginal bleeding Objective - Vital Signs Vital Signs: Vital Signs - 12hr 01/08/19 01/08/19 01/08/19 07:06 07:07 10:54 Temperature 98.4 F 98.3 F Pulse Rate 77 Respiratory 20 Rate Blood Pressure 108/55 O2 Sat by Pulse Oximetry 01/08/19 01/08/19 01/08/19 12:45 14:22 15:44 Temperature 98.2 F 98.2 F Pulse Rate 75 Respiratory 16 16 Rate Blood Pressure 114/58 O2 Sat by Pulse Oximetry 01/08/19 01/08/19 01/08/19 16:57 17:24 17:29 Temperature 97.6 F Pulse Rate 84 92 H 96 H Respiratory 16 Rate Blood Pressure 122/56 O2 Sat by Pulse 97 98 Oximetry 01/08/19 01/08/19 01/08/19 17:34 17:39 17:41 Temperature Pulse Rate 103 H 85 90 Respiratory Rate Blood Pressure O2 Sat by Pulse 97 97 87 Oximetry 01/08/19 01/08/19 01/08/19 17:44 17:49 17:51 Temperature Pulse Rate 86 83 86 Respiratory Rate Blood Pressure 121/77 O2 Sat by Pulse 97 98 Oximetry 01/08/19 01/08/19 01/08/19 17:54 17:59 18:04 Temperature Pulse Rate 86 84 84 Respiratory Rate Blood Pressure O2 Sat by Pulse 97 98 98 Oximetry 01/08/19 01/08/19 01/08/19 18:09 18:12 18:14 Temperature Pulse Rate 98 H 94 H 93 H Respiratory Rate Blood Pressure 142/59 O2 Sat by Pulse 100 100 Oximetry - Exam Breasts: normal Cardiovascular: Regular rate Lungs: Clear to auscultation, Normal air movement Abdomen: Present: normal appearance, soft, normal bowel sounds Uterus: Present: normal, firm, fundal height above umbilicus FHR: category 1 Uterine Contraction Monitor Mode: Internal Cervical Dilatation: 3 Cervical Effacement Percentage: 80 station: -2 Uterine Contraction Pattern: Regular Uterine Tone Measurement Phase: Resting Uterine Contraction Intensity: Moderate Extremities: normal - Labs Labs: Abnormal Labs 01/06/19 21:00 RBC 3.39 L MCH 33 H MCHC 35 H
[2019-01-08] MEDS: PITOCin/NS 30 UNIT/500ML 30 UNITS/500 ML BAG IV SCH ×2 (18:36→19:57)
[2019-01-08] MEDS: fentaNYL-BUPIV 2 MCG/ML-0.125% 200 MCG/100 ML BAG EPIDURAL SCH (18:39)
[2019-01-09] MEDS: fentaNYL-BUPIV 2 MCG/ML-0.125% 200 MCG/100 ML BAG EPIDURAL SCH (02:47)
[2019-01-09] MEDS: LACTATED RINGERS 1,000 ML IV SCH (04:22)
[2019-01-09] MEDS: VALTREX PO SCH (09:30)
[2019-01-09] MEDS ORDERED: ANCEF/STERILE WATER 2 GM/20 ML 2 GM/20 ML SYRINGE IV ONE (09:51)
[2019-01-09] MEDS ORDERED: PEPCID IV ONE (09:51)
[2019-01-09] MEDS ORDERED: REGLAN ONE (09:51)
[2019-01-09] MEDS ORDERED: BICITRA ONE (09:51)
--- NOTE | 2019-01-09 10:17 | Progress Note ---
Assessment and Plan - Patient Problems (1) 39 weeks gestation of Current Visit: Yes Status: Acute (2) Failed induction of labor Current Visit: Yes Status: Acute (3) Non-reassuring electronic monitoring tracing Current Visit: Yes Status: Acute Plan to address problem: Patient was counselled for delivery via C/section. Risks, benefits, and alternatives of the procedure were discussed in detail with the patient which included but not limited to the risk of infection, hemorrhage requiring blood transfusion, injury to the bowel or bladder and blood vessels. The patient expressed understanding, her questions were answered, and she gave informed consent. Anesthesia notified. Keep NPO. Continue monitoring. (4) Morbid obesity with BMI of 40.0-44.9, adult Current Visit: Yes Status: Chronic Subjective - Subjective Date of service: 01/09/19 Principal diagnosis: Induction of labor secondary to morbid obesity Interval history: Patient is a 28 year old , LMP, EDC 01/11/19 at 39 weeks and 5 days gestation who was admitted for labor induction due to morbid obesity. She received cervidil, then pitocin. She dilated to 3 cm/70% yesterday after AROM at 10 AM. She continue to have adequate contractions without any further cervical changes. tracing had been CAT1. This AM, cervix: 4 cm/90%/-2 with caput, meconium amniotic fluid, occasional variables with good recovery to baseline. Patient reports: other (Resting well under epidural anesthesia), no loss of fluid, no vaginal bleeding Objective - Vital Signs Vital Signs: Vital Signs - 12hr 01/08/19 01/08/19 01/08/19 22:15 22:20 22:25 Temperature Pulse Rate 89 90 85 Respiratory Rate Blood Pressure O2 Sat by Pulse 98 98 97 Oximetry 01/08/19 01/08/19 01/08/19 22:30 22:33 22:35 Temperature Pulse Rate 85 93 H 86 Respiratory Rate Blood Pressure 132/103 O2 Sat by Pulse 97 98 Oximetry 01/08/19 01/08/19 01/08/19 22:40 22:45 22:50 Temperature Pulse Rate 87 84 91 H Respiratory Rate Blood Pressure O2 Sat by Pulse 98 96 98 Oximetry 01/08/19 01/08/19 01/08/19 22:55 23:00 23:05 Temperature Pulse Rate 89 93 H 88 Respiratory Rate Blood Pressure 131/71 O2 Sat by Pulse 98 99 98 Oximetry 01/08/19 01/08/19 01/08/19 23:10 23:15 23:20 Temperature Pulse Rate 91 H 98 H 96 H Respiratory Rate Blood Pressure O2 Sat by Pulse 98 97 99 Oximetry 01/08/19 01/08/19 01/08/19 23:25 23:30 23:31 Temperature Pulse Rate 87 83 80 Respiratory Rate Blood Pressure 116/58 O2 Sat by Pulse 97 97 Oximetry 01/08/19 01/08/19 01/08/19 23:35 23:40 23:41 Temperature Pulse Rate 90 84 98 H Respiratory Rate Blood Pressure O2 Sat by Pulse 96 96 91 Oximetry 01/08/19 01/08/19 01/08/19 23:45 23:47 23:50 Temperature Pulse Rate 90 88 91 H Respiratory Rate Blood Pressure O2 Sat by Pulse 98 94 98 Oximetry 01/08/19 01/08/19 01/09/19 23:54 23:55 00:00 Temperature Pulse Rate 91 H 86 84 Respiratory Rate Blood Pressure O2 Sat by Pulse 94 98 95 Oximetry 01/09/19 01/09/19 01/09/19 00:01 00:05 00:10 Temperature Pulse Rate 83 85 83 Respiratory Rate Blood Pressure 118/58 O2 Sat by Pulse 94 94 Oximetry 01/09/19 01/09/19 01/09/19 00:15 00:20 00:25 Temperature Pulse Rate 85 86 84 Respiratory Rate Blood Pressure O2 Sat by Pulse 93 93 94 Oximetry 01/09/19 01/09/19 01/09/19 00:30 00:32 00:35 Temperature Pulse Rate 88 88 86 Respiratory Rate Blood Pressure 111/58 O2 Sat by Pulse 94 92 95 Oximetry 01/09/19 01/09/19 01/09/19 00:38 00:40 00:43 Temperature Pulse Rate 84 85 83 Respiratory Rate Blood Pressure O2 Sat by Pulse 93 94 93 Oximetry 01/09/19 01/09/19 01/09/19 00:45 00:48 00:50 Temperature Pulse Rate 81 84 80 Respiratory Rate Blood Pressure O2 Sat by Pulse 97 93 97 Oximetry 01/09/19 01/09/19 01/09/19 00:54 00:55 00:59 Temperature Pulse Rate 84 81 82 Respiratory Rate Blood Pressure O2 Sat by Pulse 94 96 93 Oximetry 05/05/2201/09/19 01/09/19 01:00 01:01 01:05 Temperature Pulse Rate 88 96 H 85 Respiratory Rate Blood Pressure 103/55 O2 Sat by Pulse 96 98 Oximetry 01/09/19 01/09/19 01/09/19 01:09 01:10 01:15 Temperature Pulse Rate 83 86 81 Respiratory Rate Blood Pressure O2 Sat by Pulse 94 96 95 Oximetry 01/09/19 01/09/19 01/09/19 01:17 01:20 01:22 Temperature Pulse Rate 86 87 82 Respiratory Rate Blood Pressure O2 Sat by Pulse 94 93 93 Oximetry 01/09/19 01/09/19 01/09/19 01:25 01:29 01:30 Temperature Pulse Rate 81 85 Respiratory Rate Blood Pressure 105/52 O2 Sat by Pulse 96 85 95 Oximetry 01/09/19 01/09/19 01/09/19 01:35 01:40 01:41 Temperature Pulse Rate 86 81 82 Respiratory Rate Blood Pressure O2 Sat by Pulse 93 95 94 Oximetry 01/09/19 01/09/19 01/09/19 01:45 01:46 01:50 Temperature Pulse Rate 83 86 83 Respiratory Rate Blood Pressure O2 Sat by Pulse 95 94 94 Oximetry 01/09/19 01/09/19 01/09/19 01:53 01:55 01:58 Temperature Pulse Rate 81 81 81 Respiratory Rate Blood Pressure O2 Sat by Pulse 94 94 94 Oximetry 01/09/19 01/09/19 01/09/19 02:00 02:01 02:03 Temperature Pulse Rate 89 79 81 Respiratory Rate Blood Pressure 109/58 O2 Sat by Pulse 92 94 Oximetry 01/09/19 01/09/19 01/09/19 02:05 02:09 02:10 Temperature Pulse Rate 76 87 87 Respiratory Rate Blood Pressure O2 Sat by Pulse 95 93 95 Oximetry 01/09/19 01/09/19 01/09/19 02:14 02:15 02:20 Temperature Pulse Rate 85 79 90 Respiratory Rate Blood Pressure O2 Sat by Pulse 89 98 98 Oximetry 01/09/19 01/09/19 01/09/19 02:25 02:30 02:35 Temperature Pulse Rate 85 85 82 Respiratory Rate Blood Pressure 113/59 O2 Sat by Pulse 96 97 97 Oximetry 01/09/19 01/09/19 01/09/19 02:38 02:40 02:43 Temperature Pulse Rate 84 86 84 Respiratory Rate Blood Pressure O2 Sat by Pulse 94 95 94 Oximetry 01/09/19 01/09/19 01/09/19 02:45 02:50 02:55 Temperature Pulse Rate 84 87 85 Respiratory Rate Blood Pressure O2 Sat by Pulse 96 97 97 Oximetry 01/09/19 01/09/19 01/09/19 03:00 03:01 03:05 Temperature Pulse Rate 83 86 94 H Respiratory Rate Blood Pressure 117/64 O2 Sat by Pulse 96 97 Oximetry 01/09/19 01/09/19 01/09/19 03:09 03:10 03:16 Temperature Pulse Rate 104 H 86 89 Respiratory Rate Blood Pressure O2 Sat by Pulse 71 L 97 98 Oximetry 01/09/19 01/09/19 01/09/19 03:21 03:26 03:31 Temperature Pulse Rate 94 H 106 H 84 Respiratory Rate Blood Pressure 122/64 O2 Sat by Pulse 97 98 96 Oximetry 01/09/19 01/09/19 01/09/19 03:36 03:41 03:46 Temperature Pulse Rate 87 85 86 Respiratory Rate Blood Pressure O2 Sat by Pulse 96 97 97 Oximetry 01/09/19 01/09/19 01/09/19 03:51 03:56 04:01 Temperature Pulse Rate 86 84 86 Respiratory Rate Blood Pressure 124/71 O2 Sat by Pulse 98 96 96 Oximetry 01/09/19 01/09/19 01/09/19 04:06 04:08 04:11 Temperature Pulse Rate 84 84 87 Respiratory Rate Blood Pressure O2 Sat by Pulse 95 94 95 Oximetry 01/09/19 01/09/19 01/09/19 04:16 04:21 04:25 Temperature Pulse Rate 90 86 99 H Respiratory Rate Blood Pressure O2 Sat by Pulse 97 96 93 Oximetry 01/09/19 01/09/19 01/09/19 04:26 04:31 04:36 Temperature Pulse Rate 90 84 86 Respiratory Rate Blood Pressure 120/56 O2 Sat by Pulse 97 97 96 Oximetry 01/09/19 01/09/19 01/09/19 04:41 04:45 04:46 Temperature Pulse Rate 84 85 80 Respiratory Rate Blood Pressure O2 Sat by Pulse 96 93 95 Oximetry 01/09/19 01/09/19 01/09/19 04:51 04:52 04:56 Temperature Pulse Rate 84 87 82 Respiratory Rate Blood Pressure O2 Sat by Pulse 95 94 95 Oximetry 01/09/19 01/09/19 01/09/19 04:57 05:00 05:01 Temperature Pulse Rate 82 85 80 Respiratory Rate Blood Pressure 108/60 O2 Sat by Pulse 94 95 Oximetry 01/09/19 01/09/19 01/09/19 05:03 05:06 05:11 Temperature Pulse Rate 81 87 82 Respiratory Rate Blood Pressure O2 Sat by Pulse 94 91 96 Oximetry 01/09/19 01/09/19 01/09/19 05:15 05:16 05:20 Temperature Pulse Rate 81 79 98 H Respiratory Rate Blood Pressure O2 Sat by Pulse 93 96 94 Oximetry 01/09/19 01/09/19 01/09/19 05:21 05:26 05:31 Temperature Pulse Rate 80 81 91 H Respiratory Rate Blood Pressure 118/57 O2 Sat by Pulse 96 95 97 Oximetry 01/09/19 01/09/19 01/09/19 05:33 05:36 05:38 Temperature Pulse Rate 81 84 84 Respiratory Rate Blood Pressure O2 Sat by Pulse 93 96 94 Oximetry 01/09/19 01/09/19 01/09/19 05:41 05:44 05:46 Temperature Pulse Rate 86 89 84 Respiratory Rate Blood Pressure O2 Sat by Pulse 93 93 93 Oximetry 01/09/19 01/09/19 01/09/19 05:51 05:56 05:57 Temperature Pulse Rate 81 77 80 Respiratory Rate Blood Pressure O2 Sat by Pulse 95 96 94 Oximetry 01/09/19 01/09/19 01/09/19 06:01 06:06 06:08 Temperature Pulse Rate 82 81 83 Respiratory Rate Blood Pressure 107/55 O2 Sat by Pulse 96 95 92 Oximetry 01/09/19 01/09/19 01/09/19 06:11 06:13 06:16 Temperature Pulse Rate 82 84 82 Respiratory Rate Blood Pressure O2 Sat by Pulse 95 94 95 Oximetry 01/09/19 01/09/19 01/09/19 06:21 06:26 06:31 Temperature Pulse Rate 83 83 94 H Respiratory Rate Blood Pressure 104/54 O2 Sat by Pulse 97 96 94 Oximetry 01/09/19 01/09/19 01/09/19 06:36 06:37 06:41 Temperature Pulse Rate 80 86 87 Respiratory Rate Blood Pressure O2 Sat by Pulse 95 94 94 Oximetry 01/09/19 01/09/19 01/09/19 06:46 06:51 06:56 Temperature Pulse Rate 86 79 94 H Respiratory Rate Blood Pressure O2 Sat by Pulse 97 96 98 Oximetry 01/09/19 01/09/19 01/09/19 07:00 07:01 07:06 Temperature Pulse Rate 89 92 H 96 H Respiratory Rate Blood Pressure 109/54 O2 Sat by Pulse 97 98 Oximetry 01/09/19 01/09/19 01/09/19 07:09 07:11 07:16 Temperature 98.2 F Pulse Rate 89 101 H Respiratory 20 Rate Blood Pressure O2 Sat by Pulse 97 97 Oximetry 01/09/19 01/09/19 01/09/19 07:21 07:26 07:31 Temperature Pulse Rate 90 87 98 H Respiratory Rate Blood Pressure O2 Sat by Pulse 97 98 97 Oximetry 01/09/19 01/09/19 01/09/19 07:36 07:38 07:41 Temperature Pulse Rate 99 H 95 H 95 H Respiratory Rate Blood Pressure O2 Sat by Pulse 97 90 98 Oximetry 01/09/19 01/09/19 01/09/19 07:46 07:51 07:56 Temperature Pulse Rate 97 H 92 H 92 H Respiratory Rate Blood Pressure O2 Sat by Pulse 95 97 95 Oximetry 01/09/19 01/09/19 01/09/19 08:01 08:06 08:09 Temperature Pulse Rate 93 H 95 H 90 Respiratory Rate Blood Pressure 106/52 O2 Sat by Pulse 97 97 Oximetry 01/09/19 01/09/19 01/09/19 08:11 08:16 08:20 Temperature Pulse Rate 84 85 91 H Respiratory Rate Blood Pressure O2 Sat by Pulse 97 97 90 Oximetry 01/09/19 01/09/19 01/09/19 08:21 08:26 08:31 Temperature Pulse Rate 87 92 H 86 Respiratory Rate Blood Pressure O2 Sat by Pulse 97 98 99 Oximetry 01/09/19 01/09/19 01/09/19 08:36 08:39 08:41 Temperature Pulse Rate 90 93 H 99 H Respiratory Rate Blood Pressure 108/53 O2 Sat by Pulse 97 98 Oximetry 01/09/19 01/09/19 01/09/19 08:46 08:51 08:56 Temperature Pulse Rate 110 H 99 H 101 H Respiratory Rate Blood Pressure O2 Sat by Pulse 100 99 99 Oximetry 01/09/19 01/09/19 01/09/19 09:01 09:06 09:08 Temperature Pulse Rate 98 H 86 86 Respiratory Rate Blood Pressure 109/52 O2 Sat by Pulse 98 100 Oximetry 01/09/19 01/09/19 01/09/19 09:11 09:16 09:18 Temperature Pulse Rate 96 H 85 92 H Respiratory Rate Blood Pressure O2 Sat by Pulse 99 99 91 Oximetry 01/09/19 01/09/19 09:23 09:37 Temperature 97.9 F Pulse Rate 97 H Respiratory Rate Blood Pressure 124/62 O2 Sat by Pulse Oximetry - Exam Cardiovascular: Normal S1, Normal S2 Lungs: Clear to auscultation Vulva: both: normal FHR: category 2 Uterine Contraction Monitor Mode: External Cervical Dilatation: 4 Cervical Effacement Percentage: 90 station: -2 Uterine Contraction Pattern: Regular Uterine Contraction Intensity: Strong/Firm Deep Tendon Reflex Grade: Normal +2 - Labs Labs: Abnormal Labs 01/06/19 21:00 RBC 3.39 L MCH 33 H MCHC 35 H
[2019-01-09] MEDS ORDERED: XYLOCAINE CARDIAC IV ONE (10:21)
[2019-01-09] MEDS ORDERED: SUBLIMAZE ONE ×2 (10:28→10:53)
[2019-01-09] MEDS ORDERED: BICITRA PO NR (10:30)
[2019-01-09] MEDS ORDERED: REGLAN IV NR (10:30)
[2019-01-09] MEDS ORDERED: ANCEF/STERILE WATER 2 GM/20 ML 2 GM/20 ML SYRINGE IV NR (10:30)
[2019-01-09] MEDS ORDERED: PEPCID IV NR (10:30)
[2019-01-09] MEDS ORDERED: PITOCin/NS 20 UNIT/1000ML DRIP 20 UNITS/1,000 ML BAG IV SCH ×2 (11:00→12:00)
[2019-01-09] MEDS ORDERED: LACTATED RINGERS 1,000 ML IV SCH (11:00)
[2019-01-09] MEDS ORDERED: ANCEF/STERILE WATER 2 GM/20 ML IV ONE (11:00)
[2019-01-09] MEDS ORDERED: LACTATED RINGERS 1,000 ML ONE (11:05)
[2019-01-09] MEDS ORDERED: XYLOCAINE MPF 2% ONE (11:10)
[2019-01-09] MEDS ORDERED: METHERGINE IM ONE ×2 (11:20→11:30)
[2019-01-09] MEDS ORDERED: HEMABATE IM ONE (11:26)
[2019-01-09] MEDS ORDERED: LOMOTIL PO PRN (11:30)
[2019-01-09] MEDS ORDERED: ZOFRAN ONE (11:47)
[2019-01-09] MEDS ORDERED: TORADOL ONE (11:54)
[2019-01-09] MEDS ORDERED: MORPHINE IV PRN ×2 (11:59)
[2019-01-09] MEDS ORDERED: TORADOL IV PRN (11:59)
[2019-01-09] MEDS ORDERED: NARCAN 0.4 MG/1 ML IV PRN ×2 (11:59→12:17)
[2019-01-09] MEDS ORDERED: ZOFRAN IV PRN ×2 (11:59→12:17)
[2019-01-09] MEDS ORDERED: MYLICON PO PRN (11:59)
[2019-01-09] MEDS ORDERED: SENOKOT PO PRN (11:59)
[2019-01-09] MEDS ORDERED: LANSINOH TP PRN (11:59)
[2019-01-09] MEDS ORDERED: ANUCORT-HC PR PRN (11:59)
[2019-01-09] MEDS ORDERED: PHENERGAN PR PRN ×2 (11:59→12:17)
[2019-01-09] MEDS ORDERED: TUCKS PAD TP PRN (11:59)
[2019-01-09] MEDS ORDERED: MILK OF MAGNESIA PO PRN (11:59)
[2019-01-09] MEDS ORDERED: SODIUM CHLORIDE FLUSH SYRINGE 10 ML IV SCH ×2 (12:00→13:00)
--- NOTE | 2019-01-09 12:07 | Operative Report ---
Operative Report Operative Report: Preoperative diagnosis 1. SIUP at 39 weeks and 5 days gestation with failed induction. 2. Nonreassuring tracing. 3. Morbid obesity. Postoperative diagnosis: Same. Procedure: Primary low-transverse section. Surgeon: Dr. Traore Receiving Coordinator: none Anesthesia: epidural. IVF: RL 1900 cc EBL: 600 cc Urine: 300 cc clear Complications: Intraoperative uterine atony responsive to IV pitocin, IM methergine and IM hemabate. Intraoperative findings: 1. A male found in an SILVA position, delivered at 11:14 AM, Apgars 8 at 1 minute and 9 at 5 minutes, weight 7 lbs 12 oz. 2. Normal fallopian tubes and ovaries bilaterally. Procedure details: Risks, benefits, and alternatives of the procedure were discussed in detail with the patient which included but not limited to the risk of infection, hemorrhage requiring blood transfusion, injury to the bowel or bladder and blood vessels. The patient expressed understanding, her questions were answered, and she gave informed consent. The patient was taken to the operating room with an IV fluid infusing Ringers lactate and a Nelson catheter in place. In the operating room, she was placed in a dorsal supine position with a leftward tilt. She was loaded with epidural anesthesia. Venodyne boots were placed. The abdomen was washed and she was prepared and draped in usual sterile fashion. After confirming adequate anesthesia, the Pfannenstiel skin incision was made in the lower abdomen about 2 cm above the pubic symphysis using the scalpel. This incision was carried down to the underlying fascia using the Bovie. The fascia was opened bilaterally in a curvilinear fashion using the Bovie. 2 straight Kocker clamps were used to grasp the upper edge of the fascia from which the underlying rectus abdominis muscles was dissected off using the Bovie. A similar procedure was done with the lower edge of the fascia to dissect the underlying rectus abdominis muscle. The muscle was bluntly from the midline by pulling. The parietal peritoneum was grasped with 2 hemostat clamps and entered sharply using Metzenbaum scissors. A quick survey of the anatomy revealed a gravid uterus, normal fallopian tubes and ovaries bilaterally. A bladder flap was created. Phil'O retractor was placed in the incision for proper visualization. A low transverse incision was made in the lower uterine segment using the scalpel and extended bilaterally in a curvilinear fashion using bandage scissors. There was scant amount of meconium amniotic fluids. The was found in an SILVA position, the head was delivered atraumatically followed by the delivery of the shoulders and the rest of the body at 11:14 AM. The cord was clamped 2 and cut and the infant was handed off to the waiting product demonstrator. The was a male, Apgars were 8 at 1 minute and 9 at 5 minutes, weight was 7 pounds 12 oz. Cord blood was collected. The placenta was delivered manually and it was complete with a three-vessel cord. The uterine cavity was cleaned of clots and debris using dry lap sponges. The uterine incision was repaired in a running locked fashion using 0 Vicryl sutures. A second layer of imbrication was placed. The gutters were cleaned of clots and debris using dry lap sponges. After confirming adequate hemostasis, the instruments were removed from the abdominal cavity. The rectus muscle was reapproximated in an interrupted fashion using 0 Vicryl sutures. The fascia was closed in a running fashion using 0 Vicryl sutures. The subcutaneous adipose tissues was closed with 2 chromic sutures. The skin was closed with edi. Sterile dressing was placed. The counts of laps, needles, sponges, and instruments were correct 2. The patient tolerated the procedure well, she was taken to the recovery room in a stable condition.
[2019-01-09] MEDS ORDERED: PHENERGAN PO PRN (12:17)
[2019-01-09] MEDS ORDERED: DILAUDID IV PRN (12:17)
[2019-01-09] MEDS: TORADOL IV PRN ×2 (12:24→17:56)
[2019-01-09] MEDS: DILAUDID IV PRN ×2 (12:49→21:08)
[2019-01-10 00:53] LABS: Hematocrit 31.1 % (30.3-42.9); Hemoglobin 10.6 gm/dl (10.1-14.3)
[2019-01-10] MEDS: PERCOCET 5/325 PO PRN ×4 (03:38→22:16)
[2019-01-10] MEDS: IBUPROFEN PO PRN ×3 (08:37→22:14)
[2019-01-10] MEDS: PRENATAL VITAMIN PO SCH (09:25)
[2019-01-10] MEDS: FEOSOL PO SCH (09:25)
--- NOTE | 2019-01-10 10:04 | Progress Note ---
Assessment and Plan - Patient Problems (1) Encounter for induction of labor Current Visit: Yes Status: Acute (2) Morbid obesity with BMI of 40.0-44.9, adult Current Visit: Yes Status: Chronic (3) Keloid scar Current Visit: Yes Status: Chronic (4) Status post primary low transverse section Current Visit: Yes Status: Acute Plan to address problem: Continue routine PP orders Consultation with anesthia secondary to RLE numbness Anticipate d/c home within 48 hrs. (5) Anemia Current Visit: Yes Status: Acute Qualifiers: Anemia type: iron deficiency Iron deficiency anemia type: unspecified iron deficiency Qualified Code(s): D50.9 - Iron deficiency anemia, unspecified Subjective - Subjective Date of service: 01/10/19 (999) Principal diagnosis: Induction of labor secondary to morbid obesity Interval history: See admission H & P and L & D progress notes and; OB operative report Patient reports: appetite normal (currently on clear liquids), voiding normally, pain well controlled (with medications), ambulating normally (but slowly, reports that RLE still feels numb, and foot feels as if needles are in her feet.), no flatus, no bowel movement [place]: doing well, bottle feeding (but wants to try and initiate ) Objective - Vital Signs Latest vital signs: Vital Signs Temp Pulse Resp BP BP Pulse Ox 01/10/19 08:44 98.8 F 90 20 105/47 95 01/10/19 03:38 18 01/10/19 00:46 99.4 F 90 18 116/52 96 01/09/19 21:08 18 01/09/19 19:59 99.0 F 88 16 113/55 95 01/09/19 17:56 20 01/09/19 16:27 98.8 F 83 20 120/67 95 01/09/19 13:05 123 H 113/69 01/09/19 12:49 24 01/09/19 12:24 14 01/09/19 12:10 99.8 F H 14 100 Intake and Output 01/09/19 01/10/19 01/10/19 23:59 07:59 15:59 Intake Total 820 200 Output Total 1800 540 Balance -980 -340 Intake: Oral 520 200 Intake, Free Water 300 Output: Urine 1800 540 Indwelling Catheter 600 Uretheral (Nelson) 300 Void 900 540 Other: Total, Intake Amount 200 200 Total, Output Amount 300 240 - Exam Breasts: Present: normal Cardiovascular: Present: Regular rate Lungs: Present: Normal air movement Abdomen: Present: soft, tenderness, normal bowel sounds Uterus: Present: fundal height below umbilicus (U-1) Extremities: Present: other (RLE with +1 edema noted) Deep Tendon Reflex Grade: Normal +2 Incision: Present: dressed (no shadow drainage or bleeding noted through dressing)
[2019-01-10] MEDS: VALTREX PO SCH (10:10)
--- NOTE | 2019-01-10 20:12 | Progress Note ---
Subjective Date of service: 01/10/19 Principal diagnosis: Induction of labor secondary to morbid obesity Interval history: Anesthesia consult for 28 year old female s/p Combine Spinal Epidural(CSE) for labor also used for primary csection. She is now c/o "pins, needle" sensation of the sole of her right foot. Her right foot appears very swollen, with + 3 pitting edema, good capillary refill, good ROM. Able to ambulate and bear weight normally but slow. Denies local or radicular back pain and percussion tenderness. Advised to elevate leg, diana rape and continue to ambulate with assistance. Also informed that pins, needle sensation may take time to resolve completely. Will continue to monitor. Objective - Constitutional Vitals: Vital Signs - 12hr 01/10/19 01/10/19 01/10/19 08:44 11:30 16:41 Temperature 98.8 F 98.7 F 99.2 F Pulse Rate 90 95 H 109 H Respiratory 20 20 20 Rate Blood Pressure 105/59 117/73 Blood Pressure 105/47 [Left] O2 Sat by Pulse 95 96 99 Oximetry - Labs CBC & Chem 7: 01/10/19 00:13
[2019-01-11] MEDS: PERCOCET 5/325 PO PRN ×4 (04:31→22:30)
[2019-01-11] MEDS: IBUPROFEN PO PRN ×3 (04:32→22:30)
--- NOTE | 2019-01-11 10:11 | Progress Note ---
Assessment and Plan A: /postop day 2 S/P primary low transverse section. Edema and pain of right leg. Anemia secondary to and blood loss. Obesity class 3. P: Venous doppler of right lower extremity today (stat). Continue iron supplementation. Limit ambulation until results of venous doppler are back. Subjective - Subjective Date of service: 01/11/19 Principal diagnosis: /postop day 2 S/P primary low transverse section Interval history: /postop day 2 S/P primary low transverse section. Patient complains of right leg swelling since surgery; she report leg feels unco mfortable, describes a pins and needles sensation from knee to sole of foot. Patient states she has been ambulating with difficulty. She denies shortness of breath, chest pain, cough, dizziness, headache, or visual disturbance. She denies excessive fatigue. Has been evaluated by anesthesia for "pins and needles" sensation of RLE. Patient reports small amount of lochia. She is voiding without difficulty and passing gas. Tolerating a regular diet without nausea or vomiting. Patient reports: appetite normal, voiding normally, flatus, no dizzy ambulation, no bowel movement, no nauseated : doing well Objective - Vital Signs Latest vital signs: Vital Signs Temp Pulse Resp BP Pulse Ox 01/11/19 07:44 99.5 F 89 24 108/67 97 01/11/19 04:32 20 01/11/19 04:31 20 01/11/19 00:32 97.9 F 94 H 18 93/45 94 01/10/19 22:16 20 01/10/19 22:14 20 01/10/19 16:41 99.2 F 109 H 20 117/73 99 01/10/19 11:30 98.7 F 95 H 20 105/59 96 Intake and Output 01/10/19 01/11/19 01/11/19 23:59 07:59 15:59 Intake Total 360 Balance 360 Intake: Intake, Free Water 360 Other: Voiding Method Toilet # Voids Void 1 1 - Exam Cardiovascular: Present: Regular rate, Normal S1, Normal S2, No murmurs Lungs: Present: Clear to auscultation Abdomen: Present: normal appearance, soft, normal bowel sounds. Absent: distention, tenderness, guarding, rigidity Uterus: Present: normal, firm, fundal height below umbilicus. Absent: bogginess, tenderness Extremities: Present: edema (right LE edema (2+ to 3+), negative Homans sign, no palpable cord, no warmth to palpation) Incision: Present: normal, dry, intact, dressed
--- NOTE | 2019-01-11 10:26 | Vascular Lab Report ---
PROCEDURE: VL VENOUS DUPLEX LE RT TECHNIQUE: Grayscale, color flow and spectral waveform images were obtained of right lower extremity . HISTORY: RLE pain and swelling COMPARISON: None FINDINGS: There is no deep venous thrombosis seen in the right lower extremity. Flow is demonstrated by color flow and spectral waveform imaging. There is appropriate wall compression and augmentation. There is also no superficial venous thrombus seen in the right lower extremity. IMPRESSION: There is no evidence for DVT in right lower extremity. This document is electronically signed by Colleen Barajas MD., Jan 11 2019 10:23:58 AM ET
[2019-01-11] MEDS: VALTREX PO SCH (10:30)
[2019-01-11] MEDS: FEOSOL PO SCH (10:37)
[2019-01-11] MEDS: PRENATAL VITAMIN PO SCH (10:37)
--- NOTE | 2019-01-11 16:19 | Event Note ---
Date: 01/11/19 Venous doppler negative for DVT. Pt. still with swelling and paresthesias in right leg. Consulted with Dr. Palma re: this patient. Dr. Palma recommends general surgery consult and neurology consult.
--- NOTE | 2019-01-11 16:45 | Event Note ---
Date: 01/11/19 Patient states her leg is feeling better. OK to cancel consult according to Dr. Palma. Consult to cancelled.
[2019-01-11] MEDS: TYLENOL PO PRN (19:45)
[2019-01-11] MEDS ORDERED: TYLENOL PO ONE (19:45)
--- NOTE | 2019-01-11 19:50 | Event Note ---
Date: 01/11/19 Temp. 100.6. Tylenol po given. CBC, urinalysis, urine culture ordered. notified of temp elevation.
[2019-01-11 20:55] LABS: Bacteria,Urine 1+ /HPF (Negative); Bilirubin,Urine NEG (Negative); Blood,Urine LG (Negative); Color,Urine Amber (Yellow); Mucus,Urine 3+ /HPF
[2019-01-11 20:56] LABS: Protein,Urine >500 mg/dL (Negative); RBC,Urine > 182.0 /HPF (0.0-6.0)
[2019-01-11 21:00] LABS: Eosinophils % (Auto) 0.1 % (0.0-4.3); Hematocrit 28.4 % (30.3-42.9); Hemoglobin 9.5 gm/dl (10.1-14.3); Lymphocytes # (Auto) 0.7 K/mm3 (1.2-5.4); Lymphocytes % (Auto) 6.5 % (13.4-35.0); Mean Corpuscular HGB Conc 34 % (30-34); Mean Corpuscular Volume 96 fl (79-97); Monocytes # (Auto) 0.7 K/mm3 (0.0-0.8); Monocytes % (Auto) 5.9 % (0.0-7.3); Platelet Count 284 K/mm3 (140-440); Red Blood Count 2.95 M/mm3 (3.65-5.03)
[2019-01-11] MEDS ORDERED: AUGMENTIN 500 MG PO SCH (22:00)
--- NOTE | 2019-01-11 23:54 | Event Note ---
Date: 01/11/19 Patient still with mild temp. elevation; suspect UTI. Urine C&S has been sent and antibiotic started. Proteinuria noted. Patient denies headache, visual disturbance, nausea or vomiting, abdominal or epigastric pain, chest pain, shortness of breath, or cough. Patient denies flank pain or malaise. CBC, CMP, uric acid, blood and urine cultures done. Warning signs discussed with patient. MD notified.
[2019-01-11 23:57] LABS: BUN/Creatinine Ratio 10; Blood Urea Nitrogen 6 mg/dL (7-17); Calcium 8.5 mg/dL (8.4-10.2)
[2019-01-11 23:58] LABS: Alanine Aminotransferase 34 units/L (7-56); Albumin 2.6 g/dL (3.9-5); Hemolysis Index 10
[2019-01-12] MEDS: TYLENOL PO PRN (02:08)
[2019-01-12 02:11] LABS: Uric Acid 2.7 mg/dL (3.5-7.6)
[2019-01-12] MEDS: LACTATED RINGERS 1,000 ML IV SCH ×2 (03:34→23:43)
[2019-01-12] MEDS: CLEOCIN 900 MG/50 mL 900 MG/50 ML BAG IV SCH ×4 (03:34→20:51)
[2019-01-12] MEDS: AMPICILLIN/NS 2 GM/100 ML 2 GM/100 ML BAG IV SCH ×4 (04:16→23:43)
[2019-01-12] MEDS: GENTAMICIN/NS 100 MG/100 ML 100 MG/100 ML BAG IV SCH ×3 (05:19→12:16)
[2019-01-12] MEDS: IBUPROFEN PO PRN ×2 (09:31→16:27)
[2019-01-12] MEDS: PERCOCET 5/325 PO PRN ×2 (09:35→16:26)
[2019-01-12] MEDS: PRENATAL VITAMIN PO SCH (09:53)
[2019-01-12] MEDS: FEOSOL PO SCH (09:54)
[2019-01-12] MEDS: VALTREX PO SCH (10:01)
--- NOTE | 2019-01-12 11:32 | XRay Report ---
EXAM: XR CHEST ROUTINE 2V HISTORY: fever TECHNIQUE: PA and lateral chest x-ray dated 01/12/2019 at 11:15 AM. COMPARISON: None available. FINDINGS: The heart size and mediastinum are within normal limits. There is a shallow inspiratory effort with r esultant mild crowding of the bronchopulmonary markings in the infrahilar regions. The lung gray an d costophrenic angles are clear. There is no acute parenchymal infiltrate, pleural effusion, or pneu mothorax seen. The visualized bony structures are within normal limits. IMPRESSION: 1. No evidence for acute cardiopulmonary disease seen. This document is electronically signed by Jose Walton MD., Jan 12 2019 11:30:48 AM ET
--- NOTE | 2019-01-12 17:06 | Progress Note ---
Assessment and Plan A: /postop day 3 S/P primary low transverse section. Anemia secondary to pregnnacy and blood loss. Fever overnight which has now resolved. P: Continue IV antibiotics. Continue iron supplementation. Subjective - Subjective Date of service: 01/12/19 Principal diagnosis: /postop day 3 S/P primary low transverse section Interval history: /postop day 3 S/P primary low transverse section. Patient had a fever overnight; she is taking Ampicillin, Gentamicin, and Clindamycin. Temp. is now normal. Patient denies chills, malaise, abdominal pain, leg pain, chest pain, shortness of breath, cough, flank pain, heavy bleeding, dizziness, or nausea or vomiting. Patient reports: appetite normal, voiding normally, pain well controlled, flatu s, ambulating normally, no dizzy ambulation, no nauseated [place]: doing well Objective - Vital Signs Latest vital signs: Vital Signs Temp Pulse Resp BP BP Pulse Ox 01/12/19 16:20 97.7 F 123 H 18 113/67 01/12/19 08:38 98.5 F 114 H 20 118/69 97 01/12/19 06:40 98.5 F 01/12/19 05:29 99.3 F 01/12/19 04:24 102.8 F H 01/12/19 02:11 102.8 F H 01/11/19 23:19 100.9 F H 121 H 20 104/69 01/11/19 22:30 20 01/11/19 19:24 100.6 F H Intake and Output 01/12/19 01/12/19 01/12/19 07:59 15:59 23:59 Intake Total 260 150 480 Balance 260 150 480 Intake: IV 260 150 CLEOCIN 900 MG/50 mL 900 50 50 mg In 50 ml @ 100 mls/hr IV Q8H [facility] Rx#:[id number] GARAMYCIN/NS 100 MG/100 100 100 ML 100 mg In 100 ml @ 200 mls/hr IV Q8H [facility] Rx#: [id number] Left Forearm 10 POLYCILLIN/NS 2 GM/100 ML 100 2 gm In 100 ml @ 100 mls /hr IV Q6H [facility] Rx#: [id number] Oral 480 Other: Total, Intake Amount 480 - Exam Cardiovascular: Present: Regular rate, Normal S1, Normal S2, No murmurs Lungs: Present: Clear to auscultation Abdomen: Present: normal appearance, soft, normal bowel sounds. Absent: distention, tenderness, guarding, rigidity Uterus: Present: normal, firm, fundal height below umbilicus. Absent: bogginess, tenderness Extremities: Present: normal. Absent: tenderness, edema Incision: Present: normal, intact - Labs Labs: Abnormal lab results 01/11/19 01/11/19 01/11/19 Range/Units 19:45 20:46 23:23 WBC 11.1 H (4.5-11.0) K/mm3 RBC 2.95 L (3.65-5.03) M/mm3 Hgb 9.5 L (10.1-14.3) gm/dl Hct 28.4 L (30.3-42.9) % Lymph % (Auto) 6.5 L (13.4-35.0) % Lymph # 0.7 L (1.2-5.4) K/mm3 Seg Neutrophils % 87.5 H (40.0-70.0) % Seg Neutrophils # 9.7 H (1.8-7.7) K/mm3 Sodium 133 L (137-145) mmol/L Chloride 97.0 L (98-107) mmol/L BUN 6 L (7-17) mg/dL Creatinine 0.6 L (0.7-1.2) mg/dL Glucose 109 H (65-100) mg/dL Uric Acid 2.7 L (3.5-7.6) mg/dL AST 43 H (5-40) units/L Lactate Dehydrogenase 238 H (91-180) units/L Total Protein 6.0 L (6.3-8.2) g/dL Albumin 2.6 L (3.9-5) g/dL Ur Specific [place] 1.037 H (1.003-1.030) Urine WBC (Auto) 25.0 H (0.0-6.0) /HPF
[2019-01-12] MEDS ORDERED: LACTATED RINGERS 1,000 ML IV SCH (21:00)
[2019-01-13] MEDS: TYLENOL PO PRN ×2 (03:20→16:37)
[2019-01-13] MEDS: GENTAMICIN/NS 100 MG/100 ML 100 MG/100 ML BAG IV SCH ×2 (03:22→12:08)
[2019-01-13] MEDS: CLEOCIN 900 MG/50 mL 900 MG/50 ML BAG IV SCH ×2 (03:22→13:05)
[2019-01-13] MEDS: AMPICILLIN/NS 2 GM/100 ML 2 GM/100 ML BAG IV SCH ×3 (05:27→15:28)
[2019-01-13 09:52] LABS: Basophils % (Auto) 0.2 % (0.0-1.8); Eosinophils % (Auto) 0.1 % (0.0-4.3); Hematocrit 27.9 % (30.3-42.9); Hemoglobin 9.7 gm/dl (10.1-14.3); Lymphocytes # (Auto) 0.8 K/mm3 (1.2-5.4); Lymphocytes % (Auto) 8.3 % (13.4-35.0); Mean Corpuscular HGB Conc 35 % (30-34); Mean Corpuscular Volume 95 fl (79-97); Monocytes # (Auto) 1.1 K/mm3 (0.0-0.8); Monocytes % (Auto) 11.9 % (0.0-7.3); Platelet Count 326 K/mm3 (140-440); Red Blood Count 2.94 M/mm3 (3.65-5.03); Red Cell Distribution Width 13.8 % (13.2-15.2)
[2019-01-13] MEDS: PRENATAL VITAMIN PO SCH (10:05)
[2019-01-13] MEDS: FEOSOL PO SCH (10:05)
[2019-01-13] MEDS: VALTREX PO SCH (10:05)
--- NOTE | 2019-01-13 10:05 | Progress Note ---
Assessment and Plan - Patient Problems (1) 39 weeks gestation of Current Visit: Yes Status: Acute (2) Failed induction of labor Current Visit: Yes Status: Acute (3) Non-reassuring electronic monitoring tracing Current Visit: Yes Status: Acute Plan to address problem: S/P C/section. (4) Morbid obesity with BMI of 40.0-44.9, adult Current Visit: Yes Status: Chronic (5) delivery delivered Current Visit: Yes Status: Acute (6) Febrile illness Current Visit: Yes Status: Acute Plan to address problem: Continue amp/gent/clinda. F/U cultures. CBC today. Tylenol PRN. Patient desires to go home but she was told that she can't be discharged today. Subjective - Subjective Date of service: 01/13/19 Principal diagnosis: /postop day 3 S/P primary low transverse section Interval history: Patient is a 28 year old , who is S/P C/section at 39 weeks. She is POD#4. She developed a fever on POD#2. Urine and blood culture were negative after 2 days. She is on amp/gent/clinda. Her WBC is normal. Rapid Flu test was negative. She denies any cough, chest, or SOB. Objective - Vital Signs Latest vital signs: Vital Signs Temp Pulse Resp BP BP Pulse Ox 01/13/19 07:46 98.3 F 96 H 16 116/68 99 01/13/19 05:00 99.6 F 01/13/19 04:20 18 01/13/19 03:20 18 01/13/19 02:22 123 H 116/45 98 01/12/19 20:00 98.8 F 01/12/19 18:25 102.8 F H 01/12/19 16:20 97.7 F 123 H 18 113/67 Intake and Output 01/12/19 01/13/19 01/13/19 23:59 07:59 15:59 Intake Total 990 460 Balance 990 460 Intake: IV 150 100 CLEOCIN 900 MG/50 mL 900 50 mg In 50 ml @ 100 mls/hr IV Q8H [facility] Rx#:[id number] POLYCILLIN/NS 2 GM/100 ML 100 100 2 gm In 100 ml @ 100 mls /hr IV Q6H [facility] Rx#: [id number] Oral 840 Intake, Free Water 360 Other: Total, Intake Amount 360 # Voids Void 1 1 - Exam Cardiovascular: Present: Normal S1, Normal S2 Lungs: Present: Clear to auscultation Vulva: both: normal Deep Tendon Reflex Grade: Normal +2 - Labs Labs: Abnormal lab results 01/13/19 Range/Units 09:04 RBC 2.94 L (3.65-5.03) M/mm3 Hgb 9.7 L (10.1-14.3) gm/dl Hct 27.9 L (30.3-42.9) % MCH 33 H (28-32) pg MCHC 35 H (30-34) % Lymph % (Auto) 8.3 L (13.4-35.0) % [place] % (Auto) 11.9 H (0.0-7.3) % Lymph # 0.8 L (1.2-5.4) K/mm3 [place] # 1.1 H (0.0-0.8) K/mm3 Seg Neutrophils % 79.5 H (40.0-70.0) %
[2019-01-13] MEDS: PERCOCET 5/325 PO PRN (21:55)
[2019-01-13] MEDS: IBUPROFEN PO PRN (21:55)
--- NOTE | 2019-01-14 09:48 | Progress Note ---
Assessment and Plan - Patient Problems (1) Encounter for induction of labor Current Visit: Yes Status: Acute (2) Morbid obesity with BMI of 40.0-44.9, adult Current Visit: Yes Status: Chronic (3) Keloid scar Current Visit: Yes Status: Chronic (4) Status post primary low transverse section Current Visit: Yes Status: Acute Plan to address problem: Apply SRAVANTHI compression hose, continue use after d/c home D/C home today F/U in office in 2-3 days for incision check F/U in office for 6 wk PPV (5) Anemia Current Visit: Yes Status: Acute Qualifiers: Anemia type: iron deficiency Iron deficiency anemia type: unspecified iron deficiency Qualified Code(s): D50.9 - Iron deficiency anemia, unspecified Plan to address problem: Continue iron supplementation as ordered after d/c Subjective - Subjective Date of service: 01/14/19 Principal diagnosis: /postop day 3 S/P primary low transverse section Interval history: See admission H & P and L & D progress notes and; OB operative report and PP progress notes Patient reports: appetite normal, voiding normally, pain well controlled, flatus, bowel movement, ambulating normally (but slowly, denies pain in LE. Instructed to apply SRAVANTHI hose stockings and wear after d/c also, verbalized understanding and agrees with POC.) Objective - Vital Signs Latest vital signs: Vital Signs Temp Pulse Resp BP BP Pulse Ox 01/14/19 08:45 97.8 F 92 H 20 122/70 97 01/14/19 00:00 98.7 F 87 16 115/76 01/13/19 22:10 98.9 F 107 H 18 114/66 99 01/13/19 15:55 100.0 F H 117 H 18 124/75 97 Intake and Output 01/13/19 01/14/19 01/14/19 23:59 07:59 15:59 Intake Total 580 Balance 580 Intake: IV 100 POLYCILLIN/NS 2 GM/100 ML 100 2 gm In 100 ml @ 100 mls /hr IV Q6H [facility] Rx#: [id number] Oral 480 Other: Total, Intake Amount 480 # Voids Void 2 - Exam Breasts: Present: normal Cardiovascular: Present: Regular rate Lungs: Present: Normal air movement Abdomen: Present: soft, normal bowel sounds Uterus: Present: firm, fundal height below umbilicus (U-2) Extremities: Present: edema (+2-3 in RLE) Deep Tendon Reflex Grade: Normal +2 Incision: Present: dry, intact - Labs Labs: Abnormal lab results 01/13/19 Range/Units 09:04 RBC 2.94 L (3.65-5.03) M/mm3 Hgb 9.7 L (10.1-14.3) gm/dl Hct 27.9 L (30.3-42.9) % MCH 33 H (28-32) pg MCHC 35 H (30-34) % Lymph % (Auto) 8.3 L (13.4-35.0) % [place] % (Auto) 11.9 H (0.0-7.3) % Lymph # 0.8 L (1.2-5.4) K/mm3 [place] # 1.1 H (0.0-0.8) K/mm3 Seg Neutrophils % 79.5 H (40.0-70.0) %
--- NOTE | 2019-01-14 09:57 | Discharge Summary ---
Providers - Providers Date of Admission: 01/06/19 20:33 Date of discharge: 01/14/19 (1200) Attending physician: DUANE RODRIGUEZ MD 01/10/19 19:04 Consult to Anesthesiology [CONS] Routine Consulting Provider: MARKUS ANESTHESIA JOHNATHAN KENT Reason For Exam: left foot numb Primary care physician: DUANE RODRIGUEZ MD Hospitalization Reason for admission: induction of labor Delivery: Procedure: section, primary low transverse Episiotomy: none Laceration: none Incision: dry, intact complications: other (RLE edema and numbness) Discharge diagnosis: IUP at term delivered, other (Morbid obesity; anemia; keloids) baby: male Pertinent studies: Venous dopplers on LE- negative Blood cultures- negative after 48 hrs. Hospital course: See admission H & P, OB progress notes; OB operative note; and PP progress notes. Condition at discharge: Stable Disposition: DC-01 TO HOME OR SELFCARE - Discharge Diagnoses (1) Encounter for induction of labor Status: Acute (2) Morbid obesity with BMI of 40.0-44.9, adult Status: Chronic (3) Keloid scar Status: Chronic (4) Status post primary low transverse section Status: Acute (5) Anemia Status: Acute Qualifiers: Anemia type: iron deficiency Iron deficiency anemia type: unspecified iron deficiency Qualified Code(s): D50.9 - Iron deficiency anemia, unspecified Plan - Provider Discharge Summary Activity: routine, no sex for 6 weeks, no heavy lifting 4 weeks, no strenuous exercise Diet: routine Instructions: routine Additional instructions: [] Smoking cessation referral if applicable(refer to patient education folder for contact #) [] Refer to [facility] Book[facility] Call your doctor immediately for: * Fever > 100.5 * Heavy vaginal bleeding ( >1 pad per hour) * Severe persistent headache * Shortness of breath * Reddened, hot, painful area to leg or breast * Drainage or odor from incision. * Keep incision clean and dry at all times and follow doctor's instructions regarding bathing/showering * Continue use of SRAVANTHI compression hose after discharge home * Continue iron supplementation and vitamins after d/c - Follow up plan Follow up: DUANE RODRIGUEZ MD [Primary Care Provider] - 48 Hours
[2019-01-14] MEDS: FEOSOL PO SCH (10:00)
[2019-01-14] MEDS: PRENATAL VITAMIN PO SCH (10:00)
[2019-01-14] MEDS: VALTREX PO SCH (10:01)
[2019-01-14] MEDS: IBUPROFEN PO PRN (10:01)
[2019-01-14 12:17] VITALS: BP 106/50
== END 2019-01-14 12:45 | disposition home or self-care (01) | DRG 765 ==
LOC: LD 20:33 → OB 01-09 13:32
PROVIDERS: ADMIT Obstetrics & Gynecology; ATTEND Obstetrics & Gynecology
PROC: 10H07YZ Insertion of Other Device into Products of Conception, Via Natural or Artificial Opening (ICD-10-PCS; 2019-01-06)
PROC: 10907ZC Drainage of Amniotic Fluid, Therapeutic from Products of Conception, Via Natural or Artificial Opening (ICD-10-PCS; 2019-01-06)
PROC: 3E0P7VZ Introduction of Hormone into Female Reproductive, Via Natural or Artificial Opening (ICD-10-PCS; 2019-01-06)
PROC: 10D00Z1 Extraction of Products of Conception, Low, Open Approach (ICD-10-PCS; principal; 2019-01-09)
DX: O76 Abnormality in fetal heart rate and rhythm complicating labor and delivery (principal); O98.32 Other infections with a predominantly sexual mode of transmission complicating childbirth; O99.214 Obesity complicating childbirth; O61.9 Failed induction of labor, unspecified; E66.01 Morbid (severe) obesity due to excess calories; L91.0 Hypertrophic scar; O99.72 Diseases of the skin and subcutaneous tissue complicating childbirth; O99.02 Anemia complicating childbirth; O12.05 Gestational edema, complicating the puerperium; Z3A.39 39 weeks gestation of pregnancy; Z37.0 Single live birth; Z83.3 Family history of diabetes mellitus; Z82.49 Family history of ischemic heart disease and other diseases of the circulatory system; Z71.3 Dietary counseling and surveillance; Z80.1 Family history of malignant neoplasm of trachea, bronchus and lung
CPT/HCPCS: 36415; 71046; 80053; 81001; 83615; 84550; 85014; 85018; 85025; 85027; 86592; 86850; 86900; 86901; 87040; 87086; 87400; G0378; J0290; J0690; J1170; J1580; J1885; J2001; J2210; J2405; J2590; J2765; J3010; J7120